=== PATIENT | female | born 1945 | race Caucasian/White ===

== ENCOUNTER → 2016-12-25 | Outpatient (CLI) | payer OTHER ==
[2016-01-14 21:06] VITALS: BP 175/86
--- NOTE | 2016-12-25 16:12 | US ---
Examination: Bilateral diagnostic mammogram and bilateral breast ultrasound. Clinical history: Bilateral breast lumps. Technique: Multiple digital images of both breasts were obtained. Targeted right breast ultrasound w as also obtained evaluating the area of palpable concern at the 5 o'clock position in the right [address]. Targeted left breast ultrasound was also obtained evaluating the areas of palpable concern at th e 11 o'clock position and 9 o'clock position in the left breast. Comparison: 09/01/2013. Findings: The breasts are composed of scattered fibroglandular densities. Benign-appearing calcifications are noted in the breasts bilaterally. Skin moles are present overlying both breasts. No mammographic abnormality is evident in the areas of palpable concern in the breasts bilaterally. No suspicious mass, area of architectural distortion or suspicious cluster of microcalcifications is noted. Targeted right breast ultrasound evaluating the area of palpable concern at the 5 o'clock position r eveals no sonographic abnormality. No suspicious cystic or solid mass is noted. Targeted left breast ultrasound evaluating the areas of palpable concern at the 11 o'clock position and 9 o'clock position reveal no sonographic abnormality. No suspicious cystic or solid mass is note d. Impression: 1. No mammographic or sonographic evidence of malignancy. BI-RADS category 2-benign findings. Recommend routine annual screening mammogram. Diagnostic CAD was utilized and reviewed. * 0 (ZERO) - ASSESSMENT INCOMPLETE; ADDITIONAL IMAGING IS NEEDED. * 0C - ASSESSMENT INCOMPLETE, NEEDS ADDITIONAL IMAGING EVALUATION AND/OR PRIOR MAMMOGRAMS FOR COMPAR PRIETO. * 1/1 (ONE) - NEGATIVE. * 2/II (TWO) - BENIGN FINDINGS. * 3/III (THREE) - PROBABLY BENIGN FINDING; SHORT INTERVAL FOLLOW-UP SUGGESTED. * 4/IV (FOUR) - SUSPICIOUS ABNORMALITY; BIOPSY SHOULD BE CONSIDERED. * 5/V - HIGHLY SUSPICIOUS OF MALIGNANCY; BIOPSY SHOULD BE PERFORMED. * 6/IV - KNOWN BIOPSY PROVEN MALIGNANCY-APPROPRIATE ACTION SHOULD BE TAKEN. A NEGATIVE X-RAY REPORT SHOULD NOT DELAY BIOPSY IF A DOMINANT OR CLINICALLY SUSPICIOUS MASS IS PRESENT; 4 TO 8 PERCENT OF CANCERS ARE NOT IDENTIFIED BY X-RAY. A NEGATIVE REPORT MAY REINFORCE THE CLINICAL IMPRESSION. ADENOSIS AND DENSE BREASTS MAY OBSCURE AN UNDERLYING NEOPLASM. Reported By:
== END ==
LOC: RAD 13:02
PROVIDERS: ATTEND Nurse Practitioner Family
DX: N63 Unspecified lump in breast (principal)
CPT/HCPCS: 76642; 77066

== ENCOUNTER 2017-11-04 17:47 | Inpatient (IN) | payer OTHER ==
[2017-11-04] MEDS ORDERED: PHARMACY CONSULT - DOSE _____ XX SCH (18:41)
[2017-11-04] MEDS ORDERED: HumuLIN R SC PRN (18:41)
[2017-11-04] MEDS ORDERED: PHARMACY CONSULT - VANCOMYCIN XX SCH (18:41)
[2017-11-04] MEDS ORDERED: VANCOMYCIN 1 GM PREMIX (ADDVANTAGE) 250 ML IV ONE (19:00)
[2017-11-04 19:10] LABS: BASOPHILS # (AUTO) 0.1 X10^3/uL (0.0-0.1); BASOPHILS % (AUTO) 1.4 % (0.2-1.0); EOSINOPHILS # (AUTO) 0.2 x10^3/uL (0.0-0.2); EOSINOPHILS % (AUTO) 3.5 % (0.9-2.9); HEMATOCRIT 31.6 % (36.0-47.0); HEMOGLOBIN 10.9 g/dL (12.0-16.0); LYMPHOCYTES # (AUTO) 0.8 X10^3/uL (1.3-2.9); LYMPHOCYTES % (AUTO) 11.8 % (21.0-51.0); MEAN CORPUSCULAR HEMOGLOBIN 28.7 pg (27.0-34.0); MEAN CORPUSCULAR HGB CONC 34.3 g/dL (33.0-35.0); MEAN CORPUSCULAR VOLUME 83.5 fL (80.0-100.0); MEAN PLATELET VOLUME 7.2 fL (7.4-11.0); MONOCYTES # (AUTO) 0.7 x10^3/uL (0.3-0.8); MONOCYTES % (AUTO) 10.3 % (0.0-13.0); NEUTROPHILS # (AUTO) 4.8 x10^3/uL (2.2-4.8); PLATELET COUNT 202 X10^3/uL (150.0-450.0); RED BLOOD COUNT 3.79 X10^6/uL (3.5-5.4); WHITE BLOOD COUNT 6.6 X10^3/uL (3.6-10.0)
[2017-11-04 19:26] LABS: ALANINE AMINOTRANSFERASE 17 Units/L (12-78); ALBUMIN 3.5 g/dL (3.4-5.0); ALKALINE PHOSPHATASE 119 Units/L (46-116); ASPARTATE AMINO TRANSFERASE 16 Units/L (15-37); BLOOD UREA NITROGEN 26 mg/dL (7-18); CALCIUM 9.5 mg/dL (8.5-10.1); CARBON DIOXIDE 25.3 mmol/L (21-32); CHLORIDE 101 mmol/L (98-107); COR NA(FOR HYPERGLY) 140 mmol/L (136-145); CREATININE 1.45 mg/dL (0.55-1.02); SODIUM 138 mmol/L (136-145); TOTAL PROTEIN 8.4 g/dL (6.4-8.2); eGFR BLACK RACES 46 (>60); eGFR NON BLACK RACES 38 (>60)
[2017-11-04 20:04] LABS: ERYTHROCYTE SEDIMENTATION RATE 77 MM/HOUR (0-20)
[2017-11-04] MEDS: NS 1000 ML 1,000 ML IV SCH (20:11)
[2017-11-04 20:19] VITALS: BMI 34.4
[2017-11-04] MEDS: MILK OF MAGNESIA PO SCH (21:03)
[2017-11-04] MEDS: COLACE CAP 100 MG PO SCH (21:03)
[2017-11-04] MEDS: VANCOMYCIN 1 GM PREMIX (ADDVANTAGE) 250 ML IV SCH ×2 (21:07→22:13)
[2017-11-04] MEDS: ZOSYN VIAL 3.375 GM 3.375 GM in NS 100 ML IV + SPIKE MINIBAG* 100 ML IV SCH (23:05)
[2017-11-05] MEDS: ZOSYN VIAL 3.375 GM 3.375 GM in NS 100 ML IV + SPIKE MINIBAG* 100 ML IV SCH ×3 (05:28→22:15)
[2017-11-05 06:04] LABS: BASOPHILS % (AUTO) 1.2 % (0.2-1.0); EOSINOPHILS # (AUTO) 0.2 x10^3/uL (0.0-0.2); EOSINOPHILS % (AUTO) 6.4 % (0.9-2.9); HEMATOCRIT 28.1 % (36.0-47.0); HEMOGLOBIN 9.7 g/dL (12.0-16.0); LYMPHOCYTES # (AUTO) 0.5 X10^3/uL (1.3-2.9); LYMPHOCYTES % (AUTO) 12.5 % (21.0-51.0); MEAN CORPUSCULAR HEMOGLOBIN 28.6 pg (27.0-34.0); MEAN CORPUSCULAR HGB CONC 34.4 g/dL (33.0-35.0); MEAN CORPUSCULAR VOLUME 83.1 fL (80.0-100.0); MEAN PLATELET VOLUME 7.2 fL (7.4-11.0); MONOCYTES # (AUTO) 0.6 x10^3/uL (0.3-0.8); MONOCYTES % (AUTO) 15.7 % (0.0-13.0); NEUTROPHILS # (AUTO) 2.5 x10^3/uL (2.2-4.8); NEUTROPHILS % (AUTO) 64.2 % (42.0-75.0); PLATELET COUNT 182 X10^3/uL (150.0-450.0); RED BLOOD COUNT 3.38 X10^6/uL (3.5-5.4); RED CELL DISTRIBUTION WIDTH 15.4 % (11.6-16.5); WHITE BLOOD COUNT 3.9 X10^3/uL (3.6-10.0)
[2017-11-05 06:35] LABS: ALBUMIN 2.9 g/dL (3.4-5.0); CALCIUM 8.7 mg/dL (8.5-10.1); CARBON DIOXIDE 26.9 mmol/L (21-32); COR CA(FOR HYPOALB) 9.6 mg/dL (8.5-10.1); CREATININE 1.18 mg/dL (0.55-1.02)
--- NOTE | 2017-11-05 06:44 | CT ---
HISTORY: Periorbital cellulitis Study: CT sinuses without contrast Comparison: None Technique: Axial noncontrast images with coronal and sagittal reformats. Dose reduction procedures we re used with mA/kv adjusted for body size. Findings: There is mild soft tissue swelling over the left lower eyelid and left maxilla. This is consistent wi th a mild cellulitis. No drainable fluid collection is identified. The globes are intact. The retro-o rbital soft tissues are normal. The frontal, ethmoid, maxillary, and sphenoid sinuses are clear. The middle ear spaces and mastoid air cells are clear. The ostiomeatal complexes are patent. The nasal se ptum is midline. IMPRESSION: Findings consistent with a mild left facial cellulitis Clear paranasal sinuses Reported By:
[2017-11-05 08:30] LABS: ERYTHROCYTE SEDIMENTATION RATE 82 MM/HOUR (0-20)
[2017-11-05] MEDS: MILK OF MAGNESIA PO SCH ×2 (08:51→21:22)
[2017-11-05] MEDS: NS 1000 ML 1,000 ML IV SCH (08:51)
[2017-11-05] MEDS: COLACE CAP 100 MG PO SCH ×2 (08:51→21:20)
[2017-11-05] MEDS ORDERED: PATIENT'S HOME MEDICATION (Albuterol Sulfate 1 PUFF) IN PRN (10:02)
[2017-11-05] MEDS ORDERED: LOMOTIL PO PRN (10:07)
[2017-11-05] MEDS ORDERED: NAPROSYN PO PRN (10:27)
[2017-11-05] MEDS: WELLBUTRIN XL 150 MG (DAILY) PO SCH (11:03)
[2017-11-05] MEDS: COREG TAB 6.25 MG PO SCH ×2 (11:03→21:20)
[2017-11-05] MEDS: PATIENT'S HOME MEDICATION PO SCH ×3 (11:04→21:25)
--- NOTE | 2017-11-05 15:35 | DR.UPDATE ---
H&P Update History and Physical Update: presented to the office on 11/04/2017. She was admitted for periorbital/ facial cellulitis. History and Physical reviewed and patient examined. No changes noted to H&P. Changes noted: NO Yes with the following:
[2017-11-05] MEDS ORDERED: COLACE CAP 100 MG PO SCH (21:00)
[2017-11-05] MEDS ORDERED: MILK OF MAGNESIA PO SCH (21:00)
[2017-11-05] MEDS: DESYREL PO SCH (21:21)
[2017-11-05] MEDS: GLUCOTROL PO SCH (21:22)
[2017-11-05] MEDS: VANCOMYCIN 1 GM PREMIX (ADDVANTAGE) 250 ML IV SCH (21:23)
[2017-11-06] MEDS: NS 1000 ML 1,000 ML IV SCH (04:34)
[2017-11-06 06:03] LABS: EOSINOPHILS # (AUTO) 0.3 x10^3/uL (0.0-0.2); EOSINOPHILS % (AUTO) 6.9 % (0.9-2.9); HEMATOCRIT 26.6 % (36.0-47.0); HEMOGLOBIN 9.2 g/dL (12.0-16.0); LYMPHOCYTES # (AUTO) 0.5 X10^3/uL (1.3-2.9); MEAN CORPUSCULAR HEMOGLOBIN 28.9 pg (27.0-34.0); MEAN CORPUSCULAR HGB CONC 34.5 g/dL (33.0-35.0); MEAN CORPUSCULAR VOLUME 83.8 fL (80.0-100.0); MEAN PLATELET VOLUME 7.3 fL (7.4-11.0); MONOCYTES # (AUTO) 0.5 x10^3/uL (0.3-0.8); MONOCYTES % (AUTO) 13.7 % (0.0-13.0); NEUTROPHILS # (AUTO) 2.7 x10^3/uL (2.2-4.8); NEUTROPHILS % (AUTO) 66.4 % (42.0-75.0); PLATELET COUNT 175 X10^3/uL (150.0-450.0); RED BLOOD COUNT 3.18 X10^6/uL (3.5-5.4); RED CELL DISTRIBUTION WIDTH 15.2 % (11.6-16.5)
[2017-11-06] MEDS: ZOSYN VIAL 3.375 GM 3.375 GM in NS 100 ML IV + SPIKE MINIBAG* 100 ML IV SCH ×3 (06:08→21:26)
[2017-11-06] MEDS: PATIENT'S HOME MEDICATION PO SCH ×4 (06:09→20:02)
[2017-11-06 06:29] LABS: BLOOD UREA NITROGEN 20 mg/dL (7-18); CALCIUM 8.4 mg/dL (8.5-10.1); CARBON DIOXIDE 27.4 mmol/L (21-32); CHLORIDE 104 mmol/L (98-107); CREATININE 1.08 mg/dL (0.55-1.02); SODIUM 140 mmol/L (136-145); eGFR BLACK RACES > 60 (>60); eGFR NON BLACK RACES 53 (>60)
[2017-11-06] MEDS: PriLOSEC PO SCH (08:52)
[2017-11-06] MEDS: GLUCOTROL PO SCH ×2 (08:52→20:02)
[2017-11-06] MEDS: DEMADEX PO SCH (08:53)
[2017-11-06] MEDS: ASPIRIN 81 MG CHEWTAB PO SCH (08:53)
[2017-11-06] MEDS: COLACE CAP 100 MG PO SCH ×2 (08:53→20:01)
[2017-11-06] MEDS: VASOTEC TAB 20 MG PO SCH (08:53)
[2017-11-06] MEDS: ZyrTEC TAB 10 MG PO SCH (08:53)
[2017-11-06] MEDS: COREG TAB 6.25 MG PO SCH ×2 (08:53→20:02)
[2017-11-06] MEDS: WELLBUTRIN XL 150 MG (DAILY) PO SCH (08:53)
[2017-11-06] MEDS: MILK OF MAGNESIA PO SCH ×2 (08:54→20:02)
[2017-11-06] MEDS: SNACK - Diabetic Appropriate PO SCH ×2 (08:57→20:01)
[2017-11-06 12:07] LABS: ALANINE AMINOTRANSFERASE 19 Units/L (12-78); ALBUMIN 2.9 g/dL (3.4-5.0); ALKALINE PHOSPHATASE 90 Units/L (46-116); ASPARTATE AMINO TRANSFERASE 21 Units/L (15-37); COR CA(FOR HYPOALB) 9.3 mg/dL (8.5-10.1); TOTAL PROTEIN 6.7 g/dL (6.4-8.2)
--- NOTE | 2017-11-06 13:05 | PCM.PROG ---
Progress Note - Progress Note for Day of Date: 11/05/17 - Subjective Subjective: WAS ADMITTED ON 11/04/2017. SHE IS BEING TREATED FOR PERIORBITAL/FACIAL CELLULITIS. SHE REPORTS THAT SYMPTOMS STARTED ON SATURDAY. TODAY, SHE IS ALERT AND ORIENTED, LYING IN BED ON MORNING ROUNDS. SHE IS NOTED WITH COMPLAINTS OF REDNESS AND TENDERNESS TO THE LEFT SIDE OF HER FACE. ON EXAMINATION, SHE IS NOTED WITH ERYTHEMA, WARMTH, AND SWELLING BEGINNING AT THE LEFT CHEEKBONE AND EXTENDING UP TO THE LEFT PERIORBITAL AREA. HEART IS REGULAR IN RATE AND RHYTHM. BILATERAL LUNGS ARE NOTED TO BE CLEAR TO AUSCULTATION BILATERALLY. ABDOMEN IS ROUND, SOFT, AND NON-TENDER WITH NORMAL BOWEL SOUNDS NOTED IN ALL QUADRANTS. THERE IS NORMAL RANGE OF MOTION NOTED TO ALL EXTREMITIES. HER VITALS THIS MORNING ARE 98.0-86-20-97%-144/67. LABS WERE OBTAINED. ABNORMAL LAB VALUES INCLUDE THE FOLLOWING: RBC 3.18, HGB 9.2, HCT 26.6 , BUN 24, CREATININE 1.18, GLUCOSE 126, ALBUMIN 2.9. A SINUS CT WAS OBTAINED ON ADMISSION AND REVEALED CLEAR PARANASAL SINUSES, FINDINGS CONSISTENT WITH A MILD LEFT FACIAL CELLULITIS. SHE IS CURRENTLY RECEIVING ZOSYN 3.375GM IV Q8H AND VANCOMYCIN 1GM IV DAILY. WE WILL CONTINUE WITH CURRENT PLAN OF CARE TODAY. WE PLAN TO FOLLOW UP WITH AM LABS AND CONTINUE TO MONITOR PATIENT. - Past Medical Family Social History Past Med/Fam/Surg Hx: No changes since H&P Allergies: Allergies codeine Allergy (Verified 11/04/17 20:20) shrimp Allergy (Verified 11/04/17 20:20) ant bites Allergy (Uncoded 11/04/17 20:20) - Review of Systems ROS: No change since H&P - Vital Signs and I&O's Vital Signs: Temperature 98.7 F Pulse Rate [Right Brachial] 77 Pulse Rate [Left Radial] 69 Respiratory Rate 20 Blood Pressure [Left Arm] 117/57 Blood Pressure [Right Arm] 119/58 Blood Pressure 175/86 O2 Sat by Pulse Oximetry 94 Intake and Output: Intake & Output 11/04/17 11/05/17 11/06/17 11/07/17 11:59 11:59 11:59 11:59 Intake Total 1700 2815 Balance 1700 2815 - Physical Exam Oriented: Normal Eyes: Normal Ear: Normal Nose: Normal Throat: Normal Respiratory: Normal Cardiovascular: Normal : Normal Auscultation: Bowel Sounds: Normal Palpation: Normal Tenderness: Normal Skin: Other (ERYTHEMA, WARMTH, TENDERNESS, AND SLIGHT EDEMA TO PERIORBITAL AND LEFT CHEEK AREA) Musculoskeletal: Normal Psychiatric: Normal Mood Description: Calm Affect: Normal Speech Pattern: Clear, Appropriate - Laboratory and Diagnostics Result Diagrams: 11/06/17 04:20 11/06/17 04:20 Labs: Laboratory WBC 4.0 X10^3/uL (3.6-10.0) 11/06/17 04:20 RBC 3.18 X10^6/uL (3.5-5.4) L 11/06/17 04:20 Hgb 9.2 g/dL (12.0-16.0) L 11/06/17 04:20 Hct 26.6 % (36.0-47.0) L 11/06/17 04:20 MCV 83.8 fL (80.0-100.0) 11/06/17 04:20 MCH 28.9 pg (27.0-34.0) 11/06/17 04:20 MCHC 34.5 g/dL (33.0-35.0) 11/06/17 04:20 RDW 15.2 % (11.6-16.5) 11/06/17 04:20 Plt Count 175 X10^3/uL (150.0-450.0) 11/06/17 04:20 MPV 7.3 fL (7.4-11.0) L 11/06/17 04:20 Neut % (Auto) 66.4 % (42.0-75.0) 11/06/17 04:20 Lymph % (Auto) 12.0 % (21.0-51.0) L 11/06/17 04:20 [place] % (Auto) 13.7 % (0.0-13.0) H 11/06/17 04:20 Eos % (Auto) 6.9 % (0.9-2.9) H 11/06/17 04:20 Baso % (Auto) 1.0 % (0.2-1.0) 11/06/17 04:20 Neut # (Auto) 2.7 x10^3/uL (2.2-4.8) 11/06/17 04:20 Lymph # (Auto) 0.5 X10^3/uL (1.3-2.9) L 11/06/17 04:20 [place] # (Auto) 0.5 x10^3/uL (0.3-0.8) 11/06/17 04:20 Eos # (Auto) 0.3 x10^3/uL (0.0-0.2) H 11/06/17 04:20 Baso # (Auto) 0.0 X10^3/uL (0.0-0.1) 11/06/17 04:20 Absolute Nucleated RBC 0.1 /100WBC 11/06/17 04:20 ESR 82 MM/HOUR (0-20) H 11/05/17 04:35 Sodium 140 mmol/L (136-145) 11/06/17 04:20 Corrected Sodium TNP 11/06/17 04:20 Potassium 3.7 mmol/L (3.5-5.1) 11/06/17 04:20 Chloride 104 mmol/L (98-107) 11/06/17 04:20 Carbon Dioxide 27.4 mmol/L (21-32) 11/06/17 04:20 BUN 20 mg/dL (7-18) H 11/06/17 04:20 Creatinine 1.08 mg/dL (0.55-1.02) H 11/06/17 04:20 Est GFR (MDRD) Af Amer > 60 (>60) 11/06/17 04:20 Est GFR (MDRD) Non-Af 53 (>60) L 11/06/17 04:20 Glucose 93 mg/dL (65-99) 11/06/17 04:20 POC Glucose (mg/dL) 157 mg/dL (65-99) H 11/06/17 11:56 Calcium 8.4 mg/dL (8.5-10.1) L 11/06/17 04:20 Corrected Calcium 9.3 mg/dL (8.5-10.1) 11/06/17 04:20 Total Bilirubin 0.40 mg/dL (0.2-1.0) 11/06/17 04:20 AST 21 Units/L (15-37) 11/06/17 04:20 ALT 19 Units/L (12-78) 11/06/17 04:20 Alkaline Phosphatase 90 Units/L (46-116) 11/06/17 04:20 Total Protein 6.7 g/dL (6.4-8.2) 11/06/17 04:20 Albumin 2.9 g/dL (3.4-5.0) L 11/06/17 04:20 Globulin 3.8 g/dL (2.5-4.5) 11/06/17 04:20 Albumin/Globulin Ratio 0.8 Ratio (1.1-2.1) L 11/06/17 04:20 - Plan (1) Periorbital cellulitis Status: Acute Qualifiers: Laterality: unspecified laterality Qualified Code(s): L03.213 - Periorbital cellulitis Plan: ZOSYN 3.375GM IV Q8H, VANCOMYCIN 1GM IV DAILY, CONTINUE TO MONITOR (2) Facial cellulitis Status: Acute Plan: ZOSYN 3.375GM IV Q8H, VANCOMYCIN 1GM IV DAILY, CONTINUE TO MONITOR (3) Depression Status: Chronic Qualifiers: Depression Type: major depressive disorder Major depression recurrence: recurrent Active/Remission status: remission status unspecified Qualified Code(s): F33.9 - Major depressive disorder, recurrent, unspecified Plan: CNTINUE WELLBUTRIN, CONTINUE TO MONITOR (4) Diabetes mellitus, type 2 Status: Chronic Qualifiers: Diabetes mellitus intermediate project manager insulin use: with intermediate project manager use Diabetes mellitus complication status: with unspecified complications Qualified Code(s) : E11.8 - Type 2 diabetes mellitus with unspecified complications; Z79.4 - nursing home (current) use of insulin; Z79.4 - intermediate project manager (current) use of insulin; Z79.4 - intermediate project manager (current) use of insulin; Z79.4 - intermediate project manager (current) use of insulin Plan: CONTINUE GLUCOTROL, CONTINUE HUMULIN R SLIDING SCALE, MONITOR OTBS, CONTINUE TO MONITOR (5) GERD (gastroesophageal reflux disease) Status: Chronic Qualifiers: Esophagitis presence: esophagitis presence not specified Qualified Code(s) : K21.9 - Gastro-esophageal reflux disease without esophagitis Plan: CONTINUE PRILOSEC, CONTINUE TO MONITOR (6) History of anemia Status: Chronic (7) Hypertension Status: Chronic Qualifiers: Hypertension type: essential hypertension Qualified Code(s): I10 - Essential (primary) hypertension Plan: CONTINUE COREG, CONTINUE VASOTEC, CONTINUE TO MONITOR
--- NOTE | 2017-11-06 13:26 | PCM.PROG ---
Progress Note - Progress Note for Day of Date: 11/06/17 - Subjective Subjective: IS BEING TREATED FOR PERIORBITAL/FACIAL CELLULITIS. TODAY, SHE IS ALERT AND ORIENTED, SITTIN ON THE SIDE OF THE BED ON MORNING ROUNDS. SHE CONTINUES WITH COMPLAINTS OF REDNESS AND TENDERNESS TO THE LEFT SIDE OF HER FACE. SHE ALSO REPORTS PRESSURE AROUND MY NOSE. ON EXAMINATION, SHE CONTINUES WITH ERYTHEMA, WARMTH, AND SWELLING BEGINNING AT THE LEFT CHEEKBONE AND EXTENDING UP TO THE LEFT PERIORBITAL AREA. ERYTHEMA HAS SLIGHTLY IMPROVED SINCE YESTERDAY. HEART IS REGULAR IN RATE AND RHYTHM. BILATERAL LUNGS ARE NOTED TO BE CLEAR TO AUSCULTATION BILATERALLY. ABDOMEN IS ROUND, SOFT, AND NON-TENDER WITH NORMAL BOWEL SOUNDS NOTED IN ALL QUADRANTS. THERE IS NORMAL RANGE OF MOTION NOTED TO ALL EXTREMITIES. HER VITALS THIS MORNING ARE 98.5-69-18-96%-117/57. LABS WERE OBTAINED. ABNORMAL LAB VALUES INCLUDE THE FOLLOWING: RBC 3.18, HGB 9.2 , HCT 26.6, BUN 20, CREATININE 1.08, CALCIUM 8.4, ALBUMIN 2.9. SHE CONTINUES TO RECEIVE ZOSYN 3.375GM IV Q8H AND VANCOMYCIN 1GM IV DAILY. WE WILL CONTINUE WITH CURRENT PLAN OF CARE TODAY AND WILL ALSO OBTAIN A NASAL CULTURE. WE PLAN TO FOLLOW UP WITH AM LABS AND CONTINUE TO MONITOR PATIENT. - Past Medical Family Social History Past Med/Fam/Surg Hx: No changes since H&P Allergies: Allergies codeine Allergy (Verified 11/04/17 20:20) shrimp Allergy (Verified 11/04/17 20:20) ant bites Allergy (Uncoded 11/04/17 20:20) - Review of Systems ROS: No change since H&P - Vital Signs and I&O's Vital Signs: Temperature 98.7 F Pulse Rate [Right Brachial] 77 Pulse Rate [Left Radial] 69 Respiratory Rate 20 Blood Pressure [Left Arm] 117/57 Blood Pressure [Right Arm] 119/58 Blood Pressure 175/86 O2 Sat by Pulse Oximetry 94 Intake and Output: Intake & Output 11/04/17 11/05/17 11/06/17 11/07/17 11:59 11:59 11:59 11:59 Intake Total 1700 2815 Balance 1700 2815 - Physical Exam Oriented: Normal Eyes: Normal Ear: Normal Nose: Other (PATIENT REPORTS PRESSURE AROUND NOSE) Throat: Normal Respiratory: Normal Cardiovascular: Normal : Normal Auscultation: Bowel Sounds: Normal Palpation: Normal Tenderness: Normal Skin: Other (ERYTHEMA, WARMTH, TENDERNESS, AND SLIGHT EDEMA TO PERIORBITAL AND LEFT CHEEK AREA) Musculoskeletal: Normal Psychiatric: Normal Mood Description: Calm Affect: Normal Speech Pattern: Clear, Appropriate - Laboratory and Diagnostics Result Diagrams: 11/06/17 04:20 11/06/17 04:20 Labs: Laboratory WBC 4.0 X10^3/uL (3.6-10.0) 11/06/17 04:20 RBC 3.18 X10^6/uL (3.5-5.4) L 11/06/17 04:20 Hgb 9.2 g/dL (12.0-16.0) L 11/06/17 04:20 Hct 26.6 % (36.0-47.0) L 11/06/17 04:20 MCV 83.8 fL (80.0-100.0) 11/06/17 04:20 MCH 28.9 pg (27.0-34.0) 11/06/17 04:20 MCHC 34.5 g/dL (33.0-35.0) 11/06/17 04:20 RDW 15.2 % (11.6-16.5) 11/06/17 04:20 Plt Count 175 X10^3/uL (150.0-450.0) 11/06/17 04:20 MPV 7.3 fL (7.4-11.0) L 11/06/17 04:20 Neut % (Auto) 66.4 % (42.0-75.0) 11/06/17 04:20 Lymph % (Auto) 12.0 % (21.0-51.0) L 11/06/17 04:20 [place] % (Auto) 13.7 % (0.0-13.0) H 11/06/17 04:20 Eos % (Auto) 6.9 % (0.9-2.9) H 11/06/17 04:20 Baso % (Auto) 1.0 % (0.2-1.0) 11/06/17 04:20 Neut # (Auto) 2.7 x10^3/uL (2.2-4.8) 11/06/17 04:20 Lymph # (Auto) 0.5 X10^3/uL (1.3-2.9) L 11/06/17 04:20 [place] # (Auto) 0.5 x10^3/uL (0.3-0.8) 11/06/17 04:20 Eos # (Auto) 0.3 x10^3/uL (0.0-0.2) H 11/06/17 04:20 Baso # (Auto) 0.0 X10^3/uL (0.0-0.1) 11/06/17 04:20 Absolute Nucleated RBC 0.1 /100WBC 11/06/17 04:20 ESR 82 MM/HOUR (0-20) H 11/05/17 04:35 Sodium 140 mmol/L (136-145) 11/06/17 04:20 Corrected Sodium TNP 11/06/17 04:20 Potassium 3.7 mmol/L (3.5-5.1) 11/06/17 04:20 Chloride 104 mmol/L (98-107) 11/06/17 04:20 Carbon Dioxide 27.4 mmol/L (21-32) 11/06/17 04:20 BUN 20 mg/dL (7-18) H 11/06/17 04:20 Creatinine 1.08 mg/dL (0.55-1.02) H 11/06/17 04:20 Est GFR (MDRD) Af Amer > 60 (>60) 11/06/17 04:20 Est GFR (MDRD) Non-Af 53 (>60) L 11/06/17 04:20 Glucose 93 mg/dL (65-99) 11/06/17 04:20 POC Glucose (mg/dL) 157 mg/dL (65-99) H 11/06/17 11:56 Calcium 8.4 mg/dL (8.5-10.1) L 11/06/17 04:20 Corrected Calcium 9.3 mg/dL (8.5-10.1) 11/06/17 04:20 Total Bilirubin 0.40 mg/dL (0.2-1.0) 11/06/17 04:20 AST 21 Units/L (15-37) 11/06/17 04:20 ALT 19 Units/L (12-78) 11/06/17 04:20 Alkaline Phosphatase 90 Units/L (46-116) 11/06/17 04:20 Total Protein 6.7 g/dL (6.4-8.2) 11/06/17 04:20 Albumin 2.9 g/dL (3.4-5.0) L 11/06/17 04:20 Globulin 3.8 g/dL (2.5-4.5) 11/06/17 04:20 Albumin/Globulin Ratio 0.8 Ratio (1.1-2.1) L 11/06/17 04:20 - Plan (1) Periorbital cellulitis Status: Acute Qualifiers: Laterality: unspecified laterality Qualified Code(s): L03.213 - Periorbital cellulitis Plan: ZOSYN 3.375GM IV Q8H, VANCOMYCIN 1GM IV DAILY, CONTINUE TO MONITOR (2) Facial cellulitis Status: Acute Plan: NASAL CULTURE, ZOSYN 3.375GM IV Q8H, VANCOMYCIN 1GM IV DAILY, CONTINUE TO MONITOR (3) Depression Status: Chronic Qualifiers: Depression Type: major depressive disorder Major depression recurrence: recurrent Active/Remission status: remission status unspecified Qualified Code(s): F33.9 - Major depressive disorder, recurrent, unspecified Plan: CNTINUE WELLBUTRIN, CONTINUE TO MONITOR (4) Diabetes mellitus, type 2 Status: Chronic Qualifiers: Diabetes mellitus retirement insulin use: with retirement use Diabetes mellitus complication status: with unspecified complications Qualified Code(s) : E11.8 - Type 2 diabetes mellitus with unspecified complications; Z79.4 - retirement (current) use of insulin; Z79.4 - buttermaker helper (current) use of insulin; Z79.4 - buttermaker helper (current) use of insulin; Z79.4 - buttermaker helper (current) use of insulin Plan: CONTINUE GLUCOTROL, CONTINUE HUMULIN R SLIDING SCALE, MONITOR OTBS, CONTINUE TO MONITOR (5) GERD (gastroesophageal reflux disease) Status: Chronic Qualifiers: Esophagitis presence: esophagitis presence not specified Qualified Code(s) : K21.9 - Gastro-esophageal reflux disease without esophagitis Plan: CONTINUE PRILOSEC, CONTINUE TO MONITOR (6) History of anemia Status: Chronic (7) Hypertension Status: Chronic Qualifiers: Hypertension type: essential hypertension Qualified Code(s): I10 - Essential (primary) hypertension Plan: CONTINUE COREG, CONTINUE VASOTEC, CONTINUE TO MONITOR
[2017-11-06] MEDS: DESYREL PO SCH (20:02)
[2017-11-06] MEDS: VANCOMYCIN 1 GM PREMIX (ADDVANTAGE) 250 ML IV SCH (20:03)
[2017-11-06] MEDS: ROBITUSSIN DM PO PRN (21:25)
[2017-11-07] MEDS: NS 1000 ML 1,000 ML IV SCH (02:51)
[2017-11-07] MEDS: ZOSYN VIAL 3.375 GM 3.375 GM in NS 100 ML IV + SPIKE MINIBAG* 100 ML IV SCH (05:08)
[2017-11-07] MEDS: PATIENT'S HOME MEDICATION PO SCH (05:32)
[2017-11-07 05:50] LABS: BASOPHILS % (AUTO) 1.3 % (0.2-1.0); EOSINOPHILS # (AUTO) 0.3 x10^3/uL (0.0-0.2); EOSINOPHILS % (AUTO) 9.3 % (0.9-2.9); HEMATOCRIT 24.7 % (36.0-47.0); HEMOGLOBIN 8.6 g/dL (12.0-16.0); LYMPHOCYTES # (AUTO) 0.5 X10^3/uL (1.3-2.9); LYMPHOCYTES % (AUTO) 14.5 % (21.0-51.0); MEAN CORPUSCULAR HGB CONC 34.7 g/dL (33.0-35.0); MEAN CORPUSCULAR VOLUME 83.4 fL (80.0-100.0); MEAN PLATELET VOLUME 7.3 fL (7.4-11.0); MONOCYTES # (AUTO) 0.5 x10^3/uL (0.3-0.8); MONOCYTES % (AUTO) 14.7 % (0.0-13.0); NEUTROPHILS # (AUTO) 2.1 x10^3/uL (2.2-4.8); NEUTROPHILS % (AUTO) 60.2 % (42.0-75.0); PLATELET COUNT 169 X10^3/uL (150.0-450.0); RED BLOOD COUNT 2.96 X10^6/uL (3.5-5.4); RED CELL DISTRIBUTION WIDTH 15.5 % (11.6-16.5); WHITE BLOOD COUNT 3.5 X10^3/uL (3.6-10.0)
[2017-11-07 05:53] LABS: ALANINE AMINOTRANSFERASE 18 Units/L (12-78); ALBUMIN 2.7 g/dL (3.4-5.0); ALKALINE PHOSPHATASE 87 Units/L (46-116); ASPARTATE AMINO TRANSFERASE 16 Units/L (15-37); BLOOD UREA NITROGEN 23 mg/dL (7-18); CALCIUM 7.8 mg/dL (8.5-10.1); CARBON DIOXIDE 28.7 mmol/L (21-32); CHLORIDE 108 mmol/L (98-107); COR CA(FOR HYPOALB) 8.8 mg/dL (8.5-10.1); CREATININE 1.15 mg/dL (0.55-1.02); SODIUM 142 mmol/L (136-145); TOTAL PROTEIN 6.3 g/dL (6.4-8.2); eGFR BLACK RACES 60 (>60); eGFR NON BLACK RACES 50 (>60)
[2017-11-07] MEDS: GLUCOTROL PO SCH (08:24)
[2017-11-07] MEDS: ROBITUSSIN DM PO PRN (08:24)
[2017-11-07] MEDS: MILK OF MAGNESIA PO SCH (08:24)
[2017-11-07] MEDS: WELLBUTRIN XL 150 MG (DAILY) PO SCH (08:25)
[2017-11-07] MEDS: DEMADEX PO SCH (08:26)
[2017-11-07] MEDS: COREG TAB 6.25 MG PO SCH (08:26)
[2017-11-07] MEDS: COLACE CAP 100 MG PO SCH (08:26)
[2017-11-07] MEDS: PriLOSEC PO SCH (08:26)
[2017-11-07] MEDS: VASOTEC TAB 20 MG PO SCH (08:27)
[2017-11-07] MEDS: ASPIRIN 81 MG CHEWTAB PO SCH (08:27)
[2017-11-07] MEDS: ZyrTEC TAB 10 MG PO SCH (08:27)
[2017-11-07 09:48] VITALS: BP 126/86
[2017-11-07] MEDS ORDERED: PHARMACY COMMENT IV SCH (20:45)
== END 2017-11-07 11:05 | disposition home or self-care (01) | DRG 603 ==
LOC: MED/SURG 17:47
PROVIDERS: ADMIT Internal Medicine; ATTEND Internal Medicine
DX: L03.213 Periorbital cellulitis (principal); L03.211 Cellulitis of face; E11.65 Type 2 diabetes mellitus with hyperglycemia; E78.2 Mixed hyperlipidemia; I10 Essential (primary) hypertension; F33.8 Other recurrent depressive disorders; Z79.4 Long term (current) use of insulin; K21.9 Gastro-esophageal reflux disease without esophagitis; D64.89 Other specified anemias
CPT/HCPCS: 36415; 70486; 80053; 85025; 85652; A4222; S0106; J1815; J2543; J3370

== ENCOUNTER 2024-02-03 11:28 | Observation (INO) ==
--- NOTE | 2024-02-03 12:24 | DR.URIAD ---
HPI Time Seen Time Seen by Provider: 02/03/24 12:23 PCP Primary Care Physician: Daquan Complaint Chief Complaint:: Recent UTI, now having difficulty breathing with excertional dyspnea, feels better at rest but continues to having dysnea. Patient also c omplains pain in epigastric area COVID-19 Coronavirus risk:travel/contact w/high risk person: No Has patient experienced Coronavirus symptoms: No Source History Provided: Patient Mode of Arrival Mode of Arrival: Ambulatory Timing Onset of Chief Complaint: 02/01/24 PMH PMH Past Medical History: Yes Past Medical History: Anemia, Angina, Anxiety, Arthritis, Asthma, Coronary Artery Disease, Depression, Diabetes, Dyslipidemia, GERD, Hypertension, Hypothyroidism and Renal Disease Past Surgical History: Yes Surgical History: Hysterectomy, Ortho Surgery and Other Family History History of Family Medical Conditions: Yes Family Medical History: Diabetes Mellitus, Cancer and Hypertension Social History Does patient currently use any type of tobacco product: No Have you used tobacco products in the last 12 months: No Type of Tobacco Use: None Does any household member use tobacco: No Alcohol Use: None Do you use any recreational Drugs:: No Lives With: Alone Lives Where: Home Travel Risk Coronavirus risk:travel/contact w/high risk person: No Has patient experienced Coronavirus symptoms: No Infectious screening In the last 2 months have you had wt loss of >10#?: NO Have you had fever, night sweats or hemotysis?: No Have you traveled outside the country in the last 6 months?: No Isolation: Standard PE Vital Signs Vitals: Vital Signs Temperature 98.1 F Pulse Rate 79 Pulse Rate 76 Pulse Rate 74 Pulse Rate 75 Pulse Rate 75 Pulse Rate 74 Pulse Rate 75 Pulse Rate 77 Pulse Rate 79 Pulse Rate 82 Pulse Rate 98 Pulse Rate 114 Pulse Rate 74 Pulse Rate 73 Pulse Rate 73 Pulse Rate 76 Pulse Rate 71 Pulse Rate 79 Pulse Rate 77 Pulse Rate 77 Pulse Rate 86 Pulse Rate 82 Pulse Rate 79 Pulse Rate 94 Pulse Rate 84 Respiratory Rate 34 Respiratory Rate 36 Respiratory Rate 31 Respiratory Rate 30 Respiratory Rate 27 Respiratory Rate 24 Respiratory Rate 28 Respiratory Rate 29 Respiratory Rate 25 Respiratory Rate 35 Respiratory Rate 20 Respiratory Rate 29 Respiratory Rate 30 Respiratory Rate 24 Respiratory Rate 44 Respiratory Rate 28 Respiratory Rate 23 Respiratory Rate 23 Respiratory Rate 24 Respiratory Rate 33 Respiratory Rate 35 Respiratory Rate 37 Respiratory Rate 28 Respiratory Rate 24 Blood Pressure 109/62 Blood Pressure 124/62 Blood Pressure 100/55 Blood Pressure 100/55 Blood Pressure 100/55 Blood Pressure 119/56 Blood Pressure 140/63 Blood Pressure 117/66 Blood Pressure 117/66 Blood Pressure 110/58 Blood Pressure 128/57 Blood Pressure 118/55 Blood Pressure 68/48 Blood Pressure 150/125 Blood Pressure 116/55 O2 Sat by Pulse Oximetry 98 O2 Sat by Pulse Oximetry 100 O2 Sat by Pulse Oximetry 99 O2 Sat by Pulse Oximetry 99 O2 Sat by Pulse Oximetry 99 O2 Sat by Pulse Oximetry 100 O2 Sat by Pulse Oximetry 99 O2 Sat by Pulse Oximetry 89 O2 Sat by Pulse Oximetry 99 O2 Sat by Pulse Oximetry 97 O2 Sat by Pulse Oximetry 99 O2 Sat by Pulse Oximetry 99 O2 Sat by Pulse Oximetry 100 O2 Sat by Pulse Oximetry 99 O2 Sat by Pulse Oximetry 98 O2 Sat by Pulse Oximetry 98 O2 Sat by Pulse Oximetry 96 O2 Sat by Pulse Oximetry 96 O2 Sat by Pulse Oximetry 99 O2 Sat by Pulse Oximetry 95 O2 Sat by Pulse Oximetry 98 ROR Labs Reviewed 02/03/24 12:54 02/03/24 12:54 Laboratory: WBC 9.8 X10^3/uL (3.6-10.0) 02/03/24 12:54 RBC 3.30 X10^6/uL (3.5-5.4) L 02/03/24 12:54 Hgb 10.0 g/dL (12.0-16.0) L 02/03/24 12:54 Hct 30.2 % (36.0-47.0) L 02/03/24 12:54 MCV 91.4 fL (80.0-100.0) 02/03/24 12:54 MCH 30.2 pg (27.0-34.0) 02/03/24 12:54 MCHC 33.1 g/dL (33.0-35.0) 02/03/24 12:54 RDW 14.1 % (11.6-16.5) 02/03/24 12:54 Plt Count 144 X10^3/uL (150.0-450.0) L 02/03/24 12:54 MPV 7.6 fL (7.4-11.0) 02/03/24 12:54 Neut % (Auto) 63.3 % (42.0-75.0) 02/03/24 12:54 Lymph % (Auto) 28.4 % (21.0-51.0) 02/03/24 12:54 [place] % (Auto) 6.8 % (0.0-13.0) 02/03/24 12:54 Eos % (Auto) 1.1 % (0.9-2.9) 02/03/24 12:54 Baso % (Auto) 0.4 % (0.2-1.0) 02/03/24 12:54 Neut # (Auto) 6.2 x10^3/uL (2.2-4.8) H 02/03/24 12:54 Lymph # (Auto) 2.8 X10^3/uL (1.3-2.9) 02/03/24 12:54 [place] # (Auto) 0.7 x10^3/uL (0.3-0.8) 02/03/24 12:54 Eos # (Auto) 0.1 x10^3/uL (0.0-0.2) 02/03/24 12:54 Baso # (Auto) 0.0 X10^3/uL (0.0-0.1) 02/03/24 12:54 Absolute Nucleated RBC 0.0 /100WBC 02/03/24 12:54 D-Dimer 1.47 ug/ml (0.0-0.57) H 02/03/24 12:54 Sodium 138 mmol/L (136-145) 02/03/24 12:54 Corrected Sodium 140 mmol/L (136-145) 02/03/24 12:54 Potassium 4.6 mmol/L (3.5-5.1) 02/03/24 12:54 Chloride 102 mmol/L (98-107) 02/03/24 12:54 Carbon Dioxide 21.2 mmol/L (21-32) 02/03/24 12:54 BUN 64 mg/dL (7-18) H 02/03/24 12:54 Creatinine 2.36 mg/dL (0.55-1.02) H 02/03/24 12:54 Est GFR (MDRD) Af Amer 26 (>60) L 02/03/24 12:54 Est GFR (MDRD) Non-Af 21 (>60) L 02/03/24 12:54 Glucose 176 mg/dL (65-99) H 02/03/24 12:54 Calcium 9.2 mg/dL (8.5-10.1) 02/03/24 12:54 Corrected Calcium TNP 02/03/24 12:54 Total Bilirubin 1.00 mg/dL (0.2-1.0) 02/03/24 12:54 AST 15 Units/L (15-37) 02/03/24 12:54 ALT 12 Units/L (12-78) 02/03/24 12:54 Alkaline Phosphatase 65 Units/L (46-116) 02/03/24 12:54 Creatine Kinase 27 Units/L (26-192) 02/03/24 12:54 Troponin I High Sens 7.0 ng/L (4.0-60.0) 02/03/24 12:54 B-Natriuretic Peptide 28.1 pg/mL (0-79) 02/03/24 12:54 Total Protein 6.8 g/dL (6.4-8.2) 02/03/24 12:54 Albumin 3.7 g/dL (3.4-5.0) 02/03/24 12:54 Globulin 3.1 g/dL (2.5-4.5) 02/03/24 12:54 Albumin/Globulin Ratio 1.2 Ratio (1.1-2.1) 02/03/24 12:54 Amylase 60 Units/L (25-115) 02/03/24 12:54 Lipase 94 Units/L (16-77) H 02/03/24 12:54 Specimen Type Clean catch urine 02/03/24 14:10 Urine Color Dark yellow (YELLOW) 02/03/24 14:10 Urine Appearance Clear (CLEAR) 02/03/24 14:10 Urine pH Cancelled 02/03/24 14:10 Ur Specific [place] Cancelled 02/03/24 14:10 Urine Protein Cancelled 02/03/24 14:10 Urine Glucose (UA) Cancelled 02/03/24 14:10 Urine Ketones Cancelled 02/03/24 14:10 Urine Blood Cancelled 02/03/24 14:10 Urine Nitrite Cancelled 02/03/24 14:10 Urine Bilirubin Cancelled 02/03/24 14:10 Urine Urobilinogen Cancelled 02/03/24 14:10 Ur Leukocyte Esterase Cancelled 02/03/24 14:10 Urine RBC 10-20 /HPF (0-3) A 02/03/24 14:10 Urine WBC 20-30 /HPF (0-5) A 02/03/24 14:10 Ur Squamous Epith Cells Moderate /HPF (NEGATIVE) 02/03/24 14:10 Urine Bacteria 1+ /HPF (NEGATIVE) 02/03/24 14:10 Ur Culture Indicated? Yes/culture set up 02/03/24 14:10 Opioid Opioid Risk Tool Age (Misael box if 16-45): No History of Preadolescent Sexual Abuse: No Total: 0 Total Score Risk Category: Low Risk Copyright: [facility] predicting aberrant behaviors Discharge Plan Diagnosis Discharge Problem: SOB (shortness of breath), Acute renal insufficiency, Dehydration, UTI (urinary tract infection) Discharge Plan Patient Disposition: 01 HOME, SELF-CARE Condition: Stable Prescriptions: No Action atorvastatin 20 mg tablet 1 tab PO QDAY enalapril maleate 20 mg tablet 1 tab PO QDAY glipizide 10 mg tablet 1 tab PO BID levothyroxine 25 mcg tablet 1 tab PO QDAY omeprazole 20 mg capsule,delayed release(DR/EC) 1 cap PO BID ergocalciferol (vitamin D2) [Vitamin D2] 1,250 mcg (50,000 unit) capsule 1 cap PO DAILY potassium chloride 10 mEq tablet extended release 10 meq PO QDAY temazepam 30 mg capsule 30 mg PO QPM PRN gabapentin 300 mg capsule 300 mg PO QDAY folic acid 1 mg Tablet 1 mg PO DAILY furosemide 20 mg Tablet 20 mg PO DAILY oxybutynin chloride 5 mg tablet 5 mg PO BID duloxetine 60 mg capsule,delayed release(DR/EC) 60 mg PO QDAY cetirizine 10 mg Tablet 10 mg PO DAILY temazepam 15 mg capsule 30 mg PO HS sertraline 25 mg tablet 25 mg PO QDAY Health Concerns: Post Hospitalization: new medications and changes needed to prevent readmission or further decline. Pt educated and given instructions on all concerns. Plan of Treatment: Continue with present treatment and follow up plan. Pt is to keep follow up appointment as instructed and take medications as ordered. Orders to Discharge Patient Discharge Orders: Transfer (Routine); Ordered 02/03/24 Ordered By: DANTE HOWE Follow ups/Referrals Follow ups/Referrals: JACOBY QUIROZ [REFERRING] - 3 days Instructions Stand Alone Forms: Post Hospital Follow Up Care
[2024-02-03 13:03] LABS: BASOPHILS % (AUTO) 0.4 % (0.2-1.0); EOSINOPHILS # (AUTO) 0.1 x10^3/uL (0.0-0.2); EOSINOPHILS % (AUTO) 1.1 % (0.9-2.9); HEMATOCRIT 30.2 % (36.0-47.0); LYMPHOCYTES # (AUTO) 2.8 X10^3/uL (1.3-2.9); LYMPHOCYTES % (AUTO) 28.4 % (21.0-51.0); MEAN CORPUSCULAR HEMOGLOBIN 30.2 pg (27.0-34.0); MEAN CORPUSCULAR HGB CONC 33.1 g/dL (33.0-35.0); MEAN CORPUSCULAR VOLUME 91.4 fL (80.0-100.0); MEAN PLATELET VOLUME 7.6 fL (7.4-11.0); MONOCYTES # (AUTO) 0.7 x10^3/uL (0.3-0.8); MONOCYTES % (AUTO) 6.8 % (0.0-13.0); NEUTROPHILS # (AUTO) 6.2 x10^3/uL (2.2-4.8); NEUTROPHILS % (AUTO) 63.3 % (42.0-75.0); PLATELET COUNT 144 X10^3/uL (150.0-450.0); RED CELL DISTRIBUTION WIDTH 14.1 % (11.6-16.5); WHITE BLOOD COUNT 9.8 X10^3/uL (3.6-10.0)
--- NOTE | 2024-02-03 13:03 | EKG ---
Test Reason : HYPERTENSION Blood Pressure : */* mmHG Vent. Rate : 78 BPM Atrial Rate : 78 BPM P-R Int : 204 ms QRS Dur : 92 ms QT Int : 362 ms P-R-T Axes : 92 -20 19 degrees QTc Int : 412 ms Normal sinus rhythm Septal infarct , age undetermined Nonspecific ST abnormality Abnormal ECG No previous ECGs available Confirmed by Tom Dodge MD ([id number]) on 02/03/2024 3:15:46 PM Referred By: Confirmed By: Tom Dodge MD
[2024-02-03 13:20] LABS: ALANINE AMINOTRANSFERASE 12 Units/L (12-78); ALBUMIN 3.7 g/dL (3.4-5.0); ALKALINE PHOSPHATASE 65 Units/L (46-116); AMYLASE 60 Units/L (25-115); ASPARTATE AMINO TRANSFERASE 15 Units/L (15-37); BLOOD UREA NITROGEN 64 mg/dL (7-18); CALCIUM 9.2 mg/dL (8.5-10.1); CARBON DIOXIDE 21.2 mmol/L (21-32); CHLORIDE 102 mmol/L (98-107); COR NA(FOR HYPERGLY) 140 mmol/L (136-145); CREATINE KINASE 27 Units/L (26-192); CREATININE 2.36 mg/dL (0.55-1.02); GLUCOSE 176 mg/dL (65-99); LIPASE 94 Units/L (16-77); POTASSIUM 4.6 mmol/L (3.5-5.1); SODIUM 138 mmol/L (136-145); TOTAL PROTEIN 6.8 g/dL (6.4-8.2); eGFR NON BLACK RACES 21 (>60)
--- NOTE | 2024-02-03 13:22 | RAD ---
EXAM:AP chestHISTORY:SOBCOMPARISON:Chest CT 06/04/2023FINDINGS:Heart size normal with clear lungs and pleural spaces. There is no mediastinal or hilar abnormality.IMPRESSION:THIS IS AN ELECTRONICALLY VERIFIED FINAL REPORT02/03/2024 1:19 PM - Electronically signed by Slim Barahona MD
[2024-02-03 14:43] LABS: APPEARANCE,URINE CLEAR (CLEAR); BACTERIA,URINE 1+ /HPF (NEGATIVE); COLOR,URINE DARK YELLOW (YELLOW); SQUAMOUS EPITHELIAL CELL,UR MODERATE /HPF (NEGATIVE)
[2024-02-03] MEDS ORDERED: ROCEPHIN VIAL 1 GRAM ONE (15:32)
[2024-02-03] MEDS ORDERED: NS 1,000 ML IV 1,000 ML ONE (15:35)
[2024-02-03] MEDS: ROCEPHIN VIAL 1 GRAM IVP ONE (15:43)
[2024-02-03] MEDS: NS 1,000 ML IV 1,000 ML IV ONE (15:43)
[2024-02-03] MEDS ORDERED: PATIENT'S HOME MEDICATION (Temazepam 30 mg capsule) PO PRN (18:41)
[2024-02-03] MEDS: ROCEPHIN VIAL 1 GRAM 1 G in NS 100 ML IV 100 ML IV SCH (18:44)
[2024-02-03] MEDS: DITROPAN TAB 5 MG PO SCH (21:12)
[2024-02-03] MEDS: PriLOSEC PO SCH (21:13)
[2024-02-03] MEDS: RESTORIL CAP 15 MG PO SCH (21:13)
[2024-02-04] MEDS: NS 1,000 ML IV 1,000 ML IV SCH (01:29)
[2024-02-04 06:10] LABS: BASOPHILS % (AUTO) 0.6 % (0.2-1.0); EOSINOPHILS # (AUTO) 0.2 x10^3/uL (0.0-0.2); EOSINOPHILS % (AUTO) 2.9 % (0.9-2.9); HEMATOCRIT 25.4 % (36.0-47.0); HEMOGLOBIN 8.4 g/dL (12.0-16.0); LYMPHOCYTES % (AUTO) 40.9 % (21.0-51.0); MEAN CORPUSCULAR HEMOGLOBIN 30.2 pg (27.0-34.0); MEAN CORPUSCULAR HGB CONC 33.1 g/dL (33.0-35.0); MEAN CORPUSCULAR VOLUME 91.3 fL (80.0-100.0); MEAN PLATELET VOLUME 7.9 fL (7.4-11.0); MONOCYTES # (AUTO) 0.7 x10^3/uL (0.3-0.8); MONOCYTES % (AUTO) 9.5 % (0.0-13.0); NEUTROPHILS # (AUTO) 3.4 x10^3/uL (2.2-4.8); NEUTROPHILS % (AUTO) 46.1 % (42.0-75.0); PLATELET COUNT 116 X10^3/uL (150.0-450.0); RED BLOOD COUNT 2.78 X10^6/uL (3.5-5.4); RED CELL DISTRIBUTION WIDTH 14.3 % (11.6-16.5); WHITE BLOOD COUNT 7.4 X10^3/uL (3.6-10.0)
[2024-02-04] MEDS: SYNTHROID 25 mcg TAB PO SCH (06:12)
[2024-02-04 06:21] LABS: ALBUMIN 3.1 g/dL (3.4-5.0); CALCIUM 8.4 mg/dL (8.5-10.1); CARBON DIOXIDE 25.6 mmol/L (21-32); CHOL/HDL RATIO 4.9 (0.0-5.0); COR CA(FOR HYPOALB) 9.1 mg/dL (8.5-10.1); CREATININE 1.84 mg/dL (0.55-1.02); POTASSIUM 3.6 mmol/L (3.5-5.1); TOTAL PROTEIN 5.9 g/dL (6.4-8.2)
[2024-02-04] MEDS: GLUCOTROL PO SCH (07:20)
[2024-02-04] MEDS ORDERED: CONSULT PHARMACY - POTASSIUM & MAGNESIUM XX SCH (08:00)
[2024-02-04] MEDS: ZOLOFT PO SCH (08:46)
[2024-02-04] MEDS: MICRO K EXTEN CAP 10 MEQ PO SCH (08:47)
[2024-02-04] MEDS: NEURONTIN CAP 300 MG PO SCH (08:47)
[2024-02-04] MEDS: LIPITOR TAB 20 MG PO SCH (08:47)
[2024-02-04] MEDS: FOLIC ACID TAB 1 MG PO SCH (08:47)
[2024-02-04] MEDS: CYMBALTA PO SCH (08:47)
[2024-02-04] MEDS: ZyrTEC TAB 10 MG PO SCH (08:47)
[2024-02-04] MEDS ORDERED: ZyrTEC TAB 10 MG PO SCH (09:00)
[2024-02-04] MEDS ORDERED: ROCEPHIN VIAL 1 GRAM 1 G in NS 100 ML IV 100 ML IV SCH (09:00)
[2024-02-04] MEDS ORDERED: VASOTEC TAB 20 MG PO SCH (09:00)
[2024-02-04] MEDS ORDERED: LASIX PO SCH (09:00)
[2024-02-04 09:37] VITALS: BMI 30.2
--- NOTE | 2024-02-04 10:02 | DR.H&P ---
H&P History & Physical for Day of: H&P Date: 02/04/24 Chief Complaint Chief Complaint: SOB, weakness, poor oral intake History of Present Illness History of Present Illness: Ms Jett is a 78y/o female with a PMH of NHL, oral cancer, anal/rectal cancer, anemia, HTN, HLD, DM, hypothyroidism, MDD/Anxiety presented with worsening SOB and weakness. She also reports having abdominal pain. ER work up showed elevated d-dimer, trop neg and CXR neg. UA was concerning for UTI. Patient did have decreased renal function, Cr 2.36. She was started on IV antibiotics and fluids. She is currently on room air. She reports having intermittent episodes of SOB and weakness for the past few months. She was seeing pulmonary and does not use O2 at home. She reports having NHL with recurrence along with oral cancer and anal/rectal cancer. She has had several rounds of chemotherapy and radiation over the years. She sees Dr Chavez. She states she was told that there was abdominal mass that's concerning for lymphoma. She reports intermittent nausea, denies vomiting or diarrhea. She reports seeing Cardio in the last 6 months, had Echo and holter which was normal. Labs/imaging reviewed -WBC 7.4 Hgb 8.4 Plt 116 BUN/Cr:54/1.8 D-dimer: 1.47 Trop x 1 (-) -UA: suggestive of infection, Urine Cx pending -CXR: no acute process Plan: continue hydration with NS, continue Rocephin. Follow pending cultures. Monitor H&H. Will check anemia panel. Patient needs CT-chest to r/u PE along with CTAP due to concerning for abdominal pain. Will hydrate patient today and repeat CMP in the AM. Add lovenox for DVT ppx. PT/OT as tolerated. Resume home medications. Hold nephrotoxic medications and lasix. Replace electrolytes as per protocol. Monitor AM labs/imaging. Time spent for clinical assessment, reviewing labs/imaging, physical exam, decision making and documentation greater than 45 mins. Past Medical History Past Medical History: Anemia, Angina, Anxiety, Arthritis, Asthma, Coronary Artery Disease, Depression, Diabetes, Dyslipidemia, GERD, Hypertension, Hypothyroidism and Renal Disease Additional Medical History: PULMONARY HYPERTENSION; HISTORY OF SQUAMOUS CELL CA OF ANAL CAVITY, HODGKIN'S LYMPHOMA, NON-HODGKIN'S LYMPHOMA, CARCINOMA IN SITU MOUTH. Past Surgical History Surgical History: Hysterectomy, Ortho Surgery and Other Family History Family Medical History: Diabetes Mellitus, Cancer and Hypertension Social History Does patient currently use any type of tobacco product: No Have you used tobacco products in the last 12 months: No Type of Tobacco Use: None Does any household member use tobacco: No Alcohol Use: None Drug Use: None Medications Home Medications: Home Medications Medication Instructions Recorded Confirmed Type atorvastatin 20 mg tablet 1 tab PO QDAY 03/26/22 02/03/24 History enalapril maleate 20 mg tablet 1 tab PO QDAY 03/26/22 02/03/24 History ergocalciferol (vitamin D2) 1,250 1 cap PO WEEKLY 03/26/22 02/03/24 History mcg (50,000 unit) capsule (Vitamin D2) glipizide 10 mg tablet 1 tab PO BID 03/26/22 02/03/24 History levothyroxine 25 mcg tablet 1 tab PO QDAY 03/26/22 02/03/24 History omeprazole 20 mg capsule,delayed 1 cap PO BID 03/26/22 02/03/24 History release cetirizine 10 mg tablet 10 mg PO DAILY 02/03/24 02/03/24 History duloxetine 60 mg capsule,delayed 60 mg PO QDAY 02/03/24 02/03/24 History release folic acid 1 mg tablet 1 mg PO DAILY 02/03/24 02/03/24 History furosemide 20 mg tablet 20 mg PO DAILY 02/03/24 02/03/24 History gabapentin 300 mg capsule 300 mg PO QDAY 02/03/24 02/03/24 History oxybutynin chloride 5 mg tablet 5 mg PO BID 02/03/24 02/03/24 History potassium chloride 10 mEq 10 meq PO QDAY 02/03/24 02/03/24 History tablet,extended release sertraline 25 mg tablet 25 mg PO QDAY 02/03/24 02/03/24 History temazepam 15 mg capsule 30 mg PO HS 02/03/24 02/03/24 History temazepam 30 mg capsule 30 mg PO QPM PRN 02/03/24 02/03/24 History Allergies Allergies Allergy/AdvReac Type Severity Reaction Status Date / Time codeine Allergy Unknown Verified 05/24/22 11:38 fire ant Allergy Unknown Verified 02/06/23 16:13 shrimp Allergy Unknown Verified 10/27/22 11:38 Labs 02/04/24 05:20 02/04/24 05:20 Labs: 02/03/24 14:10 Urine,Clean Catch Urine Culture - Final Laboratory WBC 7.4 X10^3/uL (3.6-10.0) 02/04/24 05:20 RBC 2.78 X10^6/uL (3.5-5.4) L 02/04/24 05:20 Hgb 8.4 g/dL (12.0-16.0) L 02/04/24 05:20 Hct 25.4 % (36.0-47.0) L 02/04/24 05:20 MCV 91.3 fL (80.0-100.0) 02/04/24 05:20 MCH 30.2 pg (27.0-34.0) 02/04/24 05:20 MCHC 33.1 g/dL (33.0-35.0) 02/04/24 05:20 RDW 14.3 % (11.6-16.5) 02/04/24 05:20 Plt Count 116 X10^3/uL (150.0-450.0) L 02/04/24 05:20 MPV 7.9 fL (7.4-11.0) 02/04/24 05:20 Neut % (Auto) 46.1 % (42.0-75.0) 02/04/24 05:20 Lymph % (Auto) 40.9 % (21.0-51.0) 02/04/24 05:20 [place] % (Auto) 9.5 % (0.0-13.0) 02/04/24 05:20 Eos % (Auto) 2.9 % (0.9-2.9) 02/04/24 05:20 Baso % (Auto) 0.6 % (0.2-1.0) 02/04/24 05:20 Neut # (Auto) 3.4 x10^3/uL (2.2-4.8) 02/04/24 05:20 Lymph # (Auto) 3.0 X10^3/uL (1.3-2.9) H 02/04/24 05:20 [place] # (Auto) 0.7 x10^3/uL (0.3-0.8) 02/04/24 05:20 Eos # (Auto) 0.2 x10^3/uL (0.0-0.2) 02/04/24 05:20 Baso # (Auto) 0.0 X10^3/uL (0.0-0.1) 02/04/24 05:20 Absolute Nucleated RBC 0.1 /100WBC 02/04/24 05:20 D-Dimer 1.47 ug/ml (0.0-0.57) H 02/03/24 12:54 Sodium 143 mmol/L (136-145) 02/04/24 05:20 Corrected Sodium 144 mmol/L (136-145) 02/04/24 05:20 Potassium 3.6 mmol/L (3.5-5.1) 02/04/24 05:20 Chloride 109 mmol/L (98-107) H 02/04/24 05:20 Carbon Dioxide 25.6 mmol/L (21-32) 02/04/24 05:20 BUN 54 mg/dL (7-18) H 02/04/24 05:20 Creatinine 1.84 mg/dL (0.55-1.02) H 02/04/24 05:20 Est GFR (MDRD) Af Amer 34 (>60) L 02/04/24 05:20 Est GFR (MDRD) Non-Af 28 (>60) L 02/04/24 05:20 Glucose 133 mg/dL (65-99) H 02/04/24 05:20 POC Glucose (mg/dL) 117 mg/dL (65-99) H 02/04/24 07:16 Calcium 8.4 mg/dL (8.5-10.1) L 02/04/24 05:20 Corrected Calcium 9.1 mg/dL (8.5-10.1) 02/04/24 05:20 Magnesium 2.2 mg/dL (2.0-2.9) 02/04/24 05:20 Total Bilirubin 0.70 mg/dL (0.2-1.0) 02/04/24 05:20 AST 14 Units/L (15-37) L 02/04/24 05:20 ALT 13 Units/L (12-78) 02/04/24 05:20 Alkaline Phosphatase 53 Units/L (46-116) 02/04/24 05:20 Creatine Kinase 27 Units/L (26-192) 02/03/24 12:54 Troponin I High Sens 7.0 ng/L (4.0-60.0) 02/03/24 12:54 B-Natriuretic Peptide 28.1 pg/mL (0-79) 02/03/24 12:54 Total Protein 5.9 g/dL (6.4-8.2) L 02/04/24 05:20 Albumin 3.1 g/dL (3.4-5.0) L 02/04/24 05:20 Globulin 2.8 g/dL (2.5-4.5) 02/04/24 05:20 Albumin/Globulin Ratio 1.1 Ratio (1.1-2.1) 02/04/24 05:20 Triglycerides 215 mg/dL (0-150) H 02/04/24 05:20 Cholesterol 177 mg/dL (0-200) 02/04/24 05:20 LDL Cholesterol, Calc 98 mg/dL (0-100) 02/04/24 05:20 HDL Cholesterol 36 mg/dL (40-60) L 02/04/24 05:20 Cholesterol/HDL Ratio 4.9 (0.0-5.0) 02/04/24 05:20 Amylase 60 Units/L (25-115) 02/03/24 12:54 Lipase 94 Units/L (16-77) H 02/03/24 12:54 Specimen Type Clean catch urine 02/03/24 14:10 Urine Color Dark yellow (YELLOW) 02/03/24 14:10 Urine Appearance Clear (CLEAR) 02/03/24 14:10 Urine pH Cancelled 02/03/24 14:10 Ur Specific [place] Cancelled 02/03/24 14:10 Urine Protein Cancelled 02/03/24 14:10 Urine Glucose (UA) Cancelled 02/03/24 14:10 Urine Ketones Cancelled 02/03/24 14:10 Urine Blood Cancelled 02/03/24 14:10 Urine Nitrite Cancelled 02/03/24 14:10 Urine Bilirubin Cancelled 02/03/24 14:10 Urine Urobilinogen Cancelled 02/03/24 14:10 Ur Leukocyte Esterase Cancelled 02/03/24 14:10 Urine RBC 10-20 /HPF (0-3) A 02/03/24 14:10 Urine WBC 20-30 /HPF (0-5) A 02/03/24 14:10 Ur Squamous Epith Cells Moderate /HPF (NEGATIVE) 02/03/24 14:10 Urine Bacteria 1+ /HPF (NEGATIVE) 02/03/24 14:10 Ur Culture Indicated? Yes/culture set up 02/03/24 14:10 Review of Systems Constitutional: Weakness Eyes: No Symptoms Reported ENT: No Symptoms Reported Respiratory: Cough, Shortness of Breath and SOB with Excertion Cardiovascular: No Symptoms Reported Gastrointestinal: Abdominal Pain Genitourinary: No Symptoms Reported Musculoskeletal: No Symptoms Reported Skin: No Symptoms Reported Neurological: No Symptoms Reported Physical Exam Vital Signs: Vital Signs Temperature 97.2 F Temperature 97.8 F Pulse Rate [Left Brachial] 73 Pulse Rate [Left Brachial] 70 Respiratory Rate 18 Respiratory Rate 18 Blood Pressure [Left Arm] 121/57 Blood Pressure [Right Arm] 112/56 O2 Sat by Pulse Oximetry 99 O2 Sat by Pulse Oximetry 99 Oriented: Normal Eyes: Normal Throat: Normal Respiratory: Clear Throughout Cardiovascular: Normal Auscultation: Bowel Sounds: Normal Palpation: Normal Tenderness: Epigastric and Mild Skin: Normal Musculoskeletal: Normal Psychiatric: Normal Mood Description: Calm Affect: Normal Speech Pattern: Clear and Appropriate Assessment/Plan (1) UTI (urinary tract infection): Qualifiers: Hematuria presence: with hematuria Urinary tract infection type: site unspecified Qualified Code(s): N39.0 - Urinary tract infection, site not specified; R31.9 - Hematuria, unspecified Status: Acute (2) Dehydration: Status: Acute (3) Acute renal insufficiency: Status: Acute (4) Anemia: Qualifiers: Anemia type: unspecified type Qualified Code(s): D64.9 - Anemia, unspecified Status: Acute (5) History of coronary artery disease: Status: Chronic (6) Hypertension: Qualifiers: Hypertension type: essential hypertension Qualified Code(s): I10 - Essential (primary) hypertension Status: Chronic (7) Diabetes mellitus, type 2: Qualifiers: Diabetes mellitus complication status: with unspecified complications Diabetes mellitus intermediate project manager insulin use: with intermediate project manager use Qualified Code(s): E11.8 - Type 2 diabetes mellitus with unspecified complications; Z79.4 - group home (current) use of insulin; Z79.4 - group home (current) use of insulin; Z79.4 - group home (current) use of insulin; Z79.4 - group home (current) use of insulin Status: Chronic (8) History of rectal cancer: Status: Chronic (9) History of mouth cancer: Status: Chronic (10) History of non-Hodgkin's lymphoma: Status: Chronic (11) Pulmonary hypertension: Status: Acute Review H&P Reviewed: Yes Patient was examined?: Yes
[2024-02-04 10:47] LABS: IRON 86 ug/dL (50-175); TOTAL IRON BINDING CAPACITY 146 ug/dL (250-450)
[2024-02-04] MEDS: HEPARIN SODIUM INJ 5000 UNITS SC SCH (11:17)
[2024-02-05 06:20] LABS: BASOPHILS % (AUTO) 0.7 % (0.2-1.0); EOSINOPHILS # (AUTO) 0.2 x10^3/uL (0.0-0.2); EOSINOPHILS % (AUTO) 3.5 % (0.9-2.9); HEMATOCRIT 21.8 % (36.0-47.0); HEMOGLOBIN 7.3 g/dL (12.0-16.0); LYMPHOCYTES # (AUTO) 2.5 X10^3/uL (1.3-2.9); LYMPHOCYTES % (AUTO) 40.9 % (21.0-51.0); MEAN CORPUSCULAR HEMOGLOBIN 30.7 pg (27.0-34.0); MEAN CORPUSCULAR HGB CONC 33.5 g/dL (33.0-35.0); MEAN CORPUSCULAR VOLUME 91.6 fL (80.0-100.0); MONOCYTES # (AUTO) 0.6 x10^3/uL (0.3-0.8); MONOCYTES % (AUTO) 10.1 % (0.0-13.0); NEUTROPHILS # (AUTO) 2.7 x10^3/uL (2.2-4.8); NEUTROPHILS % (AUTO) 44.8 % (42.0-75.0); PLATELET COUNT 103 X10^3/uL (150.0-450.0); RED BLOOD COUNT 2.38 X10^6/uL (3.5-5.4); RED CELL DISTRIBUTION WIDTH 14.3 % (11.6-16.5); WHITE BLOOD COUNT 6.1 X10^3/uL (3.6-10.0)
[2024-02-05 06:56] LABS: ALANINE AMINOTRANSFERASE 10 Units/L (12-78); ALBUMIN 2.7 g/dL (3.4-5.0); ALKALINE PHOSPHATASE 46 Units/L (46-116); ASPARTATE AMINO TRANSFERASE 18 Units/L (15-37); BLOOD UREA NITROGEN 33 mg/dL (7-18); CALCIUM 7.7 mg/dL (8.5-10.1); CHLORIDE 113 mmol/L (98-107); COR CA(FOR HYPOALB) 8.7 mg/dL (8.5-10.1); CREATININE 1.23 mg/dL (0.55-1.02); GLUCOSE 59 mg/dL (65-99); MAGNESIUM 1.8 mg/dL (2.0-2.9); POTASSIUM 3.6 mmol/L (3.5-5.1); SODIUM 145 mmol/L (136-145); TOTAL PROTEIN 5.2 g/dL (6.4-8.2); eGFR NON BLACK RACES 45 (>60)
--- NOTE | 2024-02-05 09:42 | PCM.PROG ---
Progress Note Progress Note for Day of Date of Exam: 02/05/24 Subjective Subjective: Patient seen at bedside, no acute events overnight. She states she is feeling better. She still has exertional dyspnea. She is on room air. She is scheduled to go to [place] this morning for VQ scan as that test is currently not available here. Her hgb did drop to 7.3, renal function is improving. Patient is allergic to contrast and has to be pre-medicated with steroids and benadryl. Labs/imaging reviewed -Hgb 7.3 Plt 103 BUN/Cr: 33/1.23 Ma.8 K:3.6 -Urine Cx: contamination Plan: follow VQ scan results to r/o PE. Transfuse 2 units PRBCs. Monitor H&H. Continue hydration. Continue Rocephin, repeat urine cx. Replace electrolytes as per protocol. PT/OT as tolerated. Continue home medications. Monitor AM labs/imaging. Time spent for clinical assessment, reviewing labs/imaging, physical exam, decision making and documentation greater than 45 mins. Past Medical Family Social History Allergies: Allergies codeine Allergy (Unknown, Verified 05/24/22 11:38) fire ant Allergy (Unknown, Verified 02/06/23 16:13) "ANT BITES" shrimp Allergy (Unknown, Verified 05/24/22 11:38) Vital Signs and I&O's Vital Signs: Vital Signs Temperature 98.3 F Pulse Rate [Left Brachial] 68 Respiratory Rate 20 Blood Pressure [Left Arm] 127/59 O2 Sat by Pulse Oximetry 97 Intake and Output: Intake & Output 02/02/24 02/03/24 02/04/24 02/05/24 23:59 23:59 23:59 23:59 Intake Total 200 / 200 3151 / 3151 0 / 0 Balance 200 / 200 3151 / 3151 0 / 0 Physical Exam Oriented: Normal Eyes: Normal Throat: Normal Respiratory: Generalized and Diminished Cardiovascular: Normal Auscultation: Bowel Sounds: Normal Palpation: Normal Tenderness: Epigastric and Mild Skin: Normal Musculoskeletal: Normal Psychiatric: Normal Mood Description: Calm Affect: Normal Speech Pattern: Clear and Appropriate Laboratory and Diagnostics 02/05/24 05:15 02/05/24 05:15 Labs: 02/03/24 14:10 Urine,Clean Catch Urine Culture - Final Laboratory WBC 6.1 X10^3/uL (3.6-10.0) 02/05/24 05:15 RBC 2.38 X10^6/uL (3.5-5.4) L 02/05/24 05:15 Hgb 7.3 g/dL (12.0-16.0) L 02/05/24 05:15 Hct 21.8 % (36.0-47.0) L 02/05/24 05:15 MCV 91.6 fL (80.0-100.0) 02/05/24 05:15 MCH 30.7 pg (27.0-34.0) 02/05/24 05:15 MCHC 33.5 g/dL (33.0-35.0) 02/05/24 05:15 RDW 14.3 % (11.6-16.5) 02/05/24 05:15 Plt Count 103 X10^3/uL (150.0-450.0) L 02/05/24 05:15 MPV 8.0 fL (7.4-11.0) 02/05/24 05:15 Neut % (Auto) 44.8 % (42.0-75.0) 02/05/24 05:15 Lymph % (Auto) 40.9 % (21.0-51.0) 02/05/24 05:15 [place] % (Auto) 10.1 % (0.0-13.0) 02/05/24 05:15 Eos % (Auto) 3.5 % (0.9-2.9) H 02/05/24 05:15 Baso % (Auto) 0.7 % (0.2-1.0) 02/05/24 05:15 Neut # (Auto) 2.7 x10^3/uL (2.2-4.8) 02/05/24 05:15 Lymph # (Auto) 2.5 X10^3/uL (1.3-2.9) 02/05/24 05:15 [place] # (Auto) 0.6 x10^3/uL (0.3-0.8) 02/05/24 05:15 Eos # (Auto) 0.2 x10^3/uL (0.0-0.2) 02/05/24 05:15 Baso # (Auto) 0.0 X10^3/uL (0.0-0.1) 02/05/24 05:15 Absolute Nucleated RBC 0.1 /100WBC 02/05/24 05:15 D-Dimer 1.47 ug/ml (0.0-0.57) H 02/03/24 12:54 Sodium 145 mmol/L (136-145) 02/05/24 05:15 Corrected Sodium TNP 02/05/24 05:15 Potassium 3.6 mmol/L (3.5-5.1) 02/05/24 05:15 Chloride 113 mmol/L (98-107) H 02/05/24 05:15 Carbon Dioxide 21.0 mmol/L (21-32) 02/05/24 05:15 BUN 33 mg/dL (7-18) H 02/05/24 05:15 Creatinine 1.23 mg/dL (0.55-1.02) H 02/05/24 05:15 Est GFR (MDRD) Af Amer 55 (>60) L 02/05/24 05:15 Est GFR (MDRD) Non-Af 45 (>60) L 02/05/24 05:15 Glucose 59 mg/dL (65-99) L 02/05/24 05:15 POC Glucose (mg/dL) 117 mg/dL (65-99) H 02/04/24 07:16 Calcium 7.7 mg/dL (8.5-10.1) L 02/05/24 05:15 Corrected Calcium 8.7 mg/dL (8.5-10.1) 02/05/24 05:15 Magnesium 1.8 mg/dL (2.0-2.9) L 02/05/24 05:15 Iron 86 ug/dL (50-175) 02/04/24 05:20 TIBC 146 ug/dL (250-450) L 02/04/24 05:20 Ferritin 991 ng/mL (8-252) H 02/04/24 05:20 Total Bilirubin 0.50 mg/dL (0.2-1.0) 02/05/24 05:15 AST 18 Units/L (15-37) 02/05/24 05:15 ALT 10 Units/L (12-78) L 02/05/24 05:15 Alkaline Phosphatase 46 Units/L (46-116) 02/05/24 05:15 Creatine Kinase 27 Units/L (26-192) 02/03/24 12:54 Troponin I High Sens 7.0 ng/L (4.0-60.0) 02/03/24 12:54 B-Natriuretic Peptide 28.1 pg/mL (0-79) 02/03/24 12:54 Total Protein 5.2 g/dL (6.4-8.2) L 02/05/24 05:15 Albumin 2.7 g/dL (3.4-5.0) L 02/05/24 05:15 Globulin 2.5 g/dL (2.5-4.5) 02/05/24 05:15 Albumin/Globulin Ratio 1.1 Ratio (1.1-2.1) 02/05/24 05:15 Triglycerides 215 mg/dL (0-150) H 02/04/24 05:20 Cholesterol 177 mg/dL (0-200) 02/04/24 05:20 LDL Cholesterol, Calc 98 mg/dL (0-100) 02/04/24 05:20 HDL Cholesterol 36 mg/dL (40-60) L 02/04/24 05:20 Cholesterol/HDL Ratio 4.9 (0.0-5.0) 02/04/24 05:20 Amylase 60 Units/L (25-115) 02/03/24 12:54 Lipase 94 Units/L (16-77) H 02/03/24 12:54 Vitamin B12 431 pg/mL (193-986) 02/04/24 05:20 Specimen Type Clean catch urine 02/03/24 14:10 Urine Color Dark yellow (YELLOW) 02/03/24 14:10 Urine Appearance Clear (CLEAR) 02/03/24 14:10 Urine pH Cancelled 02/03/24 14:10 Ur Specific [place] Cancelled 02/03/24 14:10 Urine Protein Cancelled 02/03/24 14:10 Urine Glucose (UA) Cancelled 02/03/24 14:10 Urine Ketones Cancelled 02/03/24 14:10 Urine Blood Cancelled 02/03/24 14:10 Urine Nitrite Cancelled 02/03/24 14:10 Urine Bilirubin Cancelled 02/03/24 14:10 Urine Urobilinogen Cancelled 02/03/24 14:10 Ur Leukocyte Esterase Cancelled 02/03/24 14:10 Urine RBC 10-20 /HPF (0-3) A 02/03/24 14:10 Urine WBC 20-30 /HPF (0-5) A 02/03/24 14:10 Ur Squamous Epith Cells Moderate /HPF (NEGATIVE) 02/03/24 14:10 Urine Bacteria 1+ /HPF (NEGATIVE) 02/03/24 14:10 Ur Culture Indicated? Yes/culture set up 02/03/24 14:10 Plan (1) Dyspnea: Status: Acute Qualifiers: Dyspnea type: dyspnea on exertion Qualified Code(s): R06.09 - Other forms of dyspnea (2) Anemia: Status: Acute Qualifiers: Anemia type: unspecified type Qualified Code(s): D64.9 - Anemia, unspecified (3) UTI (urinary tract infection): Status: Acute Qualifiers: Hematuria presence: with hematuria Urinary tract infection type: site unspecified Qualified Code(s): N39.0 - Urinary tract infection, site not specified; R31.9 - Hematuria, unspecified (4) Dehydration: Status: Acute (5) Acute renal insufficiency: Status: Acute (6) History of coronary artery disease: Status: Chronic (7) Hypertension: Status: Chronic Qualifiers: Hypertension type: essential hypertension Qualified Code(s): I10 - Essential (primary) hypertension (8) Diabetes mellitus, type 2: Status: Chronic Qualifiers: Diabetes mellitus complication status: with unspecified complications Diabetes mellitus rodent exterminator insulin use: with halfway use Qualified Code(s): E11.8 - Type 2 diabetes mellitus with unspecified complications; Z79.4 - rodent exterminator (current) use of insulin; Z79.4 - snf (current) use of insulin; Z79.4 - snf (current) use of insulin; Z79.4 - snf (current) use of insulin (9) History of rectal cancer: Status: Chronic (10) History of mouth cancer: Status: Chronic (11) History of non-Hodgkin's lymphoma: Status: Chronic (12) Pulmonary hypertension: Status: Acute
[2024-02-05] MEDS: NS 500 ML IV 500 ML IV SCH (15:52)
[2024-02-05 17:29] VITALS: RESP 18
[2024-02-05 17:44] LABS: BILIRUBIN,URINE NEGATIVE (NEGATIVE); BLOOD/HEMOGLOBIN,URINE 1+ (NEGATIVE); GLUCOSE, URINE NEGATIVE (NEGATIVE); KETONES,URINE NEGATIVE (NEGATIVE); LEUKOCYTE ESTERASE ,URINE 1+ (NEGATIVE); NITRITES,URINE NEGATIVE (NEGATIVE); PROTEIN,URINE NEGATIVE (NEGATIVE); UROBILINOGEN,URINE NORMAL (NORMAL)
[2024-02-05 17:46] LABS: APPEARANCE,URINE CLEAR (CLEAR); COLOR,URINE YELLOW (YELLOW)
[2024-02-05 17:49] LABS: SQUAMOUS EPITHELIAL CELL,UR MODERATE /HPF (NEGATIVE)
[2024-02-05 17:50] LABS: BACTERIA,URINE 1+ /HPF (NEGATIVE)
[2024-02-05] MEDS: MILK OF MAGNESIA PO PRN (20:33)
[2024-02-05] MEDS: COLACE CAP 100 MG PO PRN (20:33)
[2024-02-05] MEDS ORDERED: NS 250 ML IV 250 ML IV ONE (22:27)
[2024-02-06 05:19] LABS: BASOPHILS # (AUTO) 0.1 X10^3/uL (0.0-0.1); BASOPHILS % (AUTO) 0.7 % (0.2-1.0); EOSINOPHILS # (AUTO) 0.3 x10^3/uL (0.0-0.2); EOSINOPHILS % (AUTO) 3.3 % (0.9-2.9); HEMATOCRIT 33.8 % (36.0-47.0); LYMPHOCYTES # (AUTO) 3.3 X10^3/uL (1.3-2.9); LYMPHOCYTES % (AUTO) 42.4 % (21.0-51.0); MEAN CORPUSCULAR HGB CONC 32.8 g/dL (33.0-35.0); MEAN CORPUSCULAR VOLUME 91.4 fL (80.0-100.0); MEAN PLATELET VOLUME 7.8 fL (7.4-11.0); MONOCYTES # (AUTO) 0.6 x10^3/uL (0.3-0.8); NEUTROPHILS # (AUTO) 3.5 x10^3/uL (2.2-4.8); NEUTROPHILS % (AUTO) 45.6 % (42.0-75.0); PLATELET COUNT 100 X10^3/uL (150.0-450.0); RED CELL DISTRIBUTION WIDTH 14.4 % (11.6-16.5); WHITE BLOOD COUNT 7.8 X10^3/uL (3.6-10.0)
[2024-02-06 05:23] LABS: ALANINE AMINOTRANSFERASE 9 Units/L (12-78); ALBUMIN 2.9 g/dL (3.4-5.0); ALKALINE PHOSPHATASE 53 Units/L (46-116); ASPARTATE AMINO TRANSFERASE 20 Units/L (15-37); BLOOD UREA NITROGEN 21 mg/dL (7-18); CALCIUM 8.2 mg/dL (8.5-10.1); CARBON DIOXIDE 22.2 mmol/L (21-32); CHLORIDE 113 mmol/L (98-107); COR CA(FOR HYPOALB) 9.1 mg/dL (8.5-10.1); CREATININE 1.12 mg/dL (0.55-1.02); GLUCOSE 68 mg/dL (65-99); MAGNESIUM 1.9 mg/dL (2.0-2.9); POTASSIUM 3.9 mmol/L (3.5-5.1); SODIUM 145 mmol/L (136-145); TOTAL PROTEIN 5.8 g/dL (6.4-8.2); eGFR NON BLACK RACES 50 (>60)
[2024-02-06 05:26] LABS: HEMOGLOBIN 11.1 g/dL (12.0-16.0)
[2024-02-06] MEDS ORDERED: CONSULT PHARMACY - POTASSIUM & MAGNESIUM XX SCH (06:00)
[2024-02-06 08:31] VITALS: BP 137/77; PULSE 70; TEMP 98; O2SAT 97
[2024-02-06] MEDS: MAG-OX TAB PO SCH (09:05)
--- NOTE | 2024-02-06 09:43 | W.DIS.FURT ---
Summary of Discharge Discharge Summary of Date Date of Exam: 02/06/24 Admission Date Date of Admission: 02/03/24 Admission Diagnosis Patient Problems (Updated 02/05/24 @ 09:40 by Beatriz Schwartz) Acute renal insufficiency (Acute) N28.9 Dehydration (Acute) E86.0 UTI (urinary tract infection) (Acute) N39.0 Hospital Course: Patient is a 78 year old female admitted for dyspnea, anemia, acute cystitis, an d dehyration. Pt was treated in the [facility], dyspnea resolved. Pt on room air. V/Q scan negative. Patient was transfused 2 units packed red blood cells, hemoglobin responded appropriately. Renal function improved back to normal limits with IVF. Electrolytes repleted per protocol. Pt received IV rocephin. Urine culture contamination, repeat pending, will follow up final. Otherwise, patient stable for discharge. Rx keflex. Instructed to follow up with pcp in 1 week. Vital Signs: Vital Signs (72 hours) 02/03/24 11:29 02/03/24 12:02 02/03/24 12:02 Temperature 98.1 F Pulse Rate 84 94 H Pulse Rate [Left Brachial] Respiratory Rate 24 Blood Pressure 116/55 150/125 Blood Pressure [Left Arm] Blood Pressure [Right Arm] O2 Sat by Pulse Oximetry 98 95 Oxygen Delivery Method Room Air FIO2% 02/03/24 12:15 02/03/24 12:30 02/03/24 12:31 Temperature Pulse Rate 79 82 Pulse Rate [Left Brachial] Respiratory Rate 28 H 37 H Blood Pressure 68/48 Blood Pressure [Left Arm] Blood Pressure [Right Arm] O2 Sat by Pulse Oximetry 99 96 Oxygen Delivery Method FIO2% 02/03/24 12:31 02/03/24 12:33 02/03/24 12:33 Temperature Pulse Rate 86 77 Pulse Rate [Left Brachial] Respiratory Rate 35 H 33 H Blood Pressure 118/55 Blood Pressure [Left Arm] Blood Pressure [Right Arm] O2 Sat by Pulse Oximetry 96 98 Oxygen Delivery Method FIO2% 02/03/24 12:45 02/03/24 13:00 02/03/24 13:00 Temperature Pulse Rate 77 79 Pulse Rate [Left Brachial] Respiratory Rate 24 23 Blood Pressure 128/57 Blood Pressure [Left Arm] Blood Pressure [Right Arm] O2 Sat by Pulse Oximetry 98 99 Oxygen Delivery Method FIO2% 02/03/24 13:15 02/03/24 13:30 02/03/24 13:30 Temperature Pulse Rate 71 76 Pulse Rate [Left Brachial] Respiratory Rate 23 28 H Blood Pressure 110/58 Blood Pressure [Left Arm] Blood Pressure [Right Arm] O2 Sat by Pulse Oximetry 100 99 Oxygen Delivery Method FIO2% 02/03/24 13:45 02/03/24 14:00 02/03/24 14:01 Temperature Pulse Rate 73 73 74 Pulse Rate [Left Brachial] Respiratory Rate 44 H 24 30 H Blood Pressure Blood Pressure [Left Arm] Blood Pressure [Right Arm] O2 Sat by Pulse Oximetry 99 97 99 Oxygen Delivery Method FIO2% 02/03/24 14:01 02/03/24 14:01 02/03/24 14:17 Temperature Pulse Rate 114 H Pulse Rate [Left Brachial] Respiratory Rate 29 H Blood Pressure 117/66 117/66 Blood Pressure [Left Arm] Blood Pressure [Right Arm] O2 Sat by Pulse Oximetry Oxygen Delivery Method FIO2% 02/03/24 14:18 02/03/24 14:18 02/03/24 14:29 Temperature Pulse Rate 98 H 82 Pulse Rate [Left Brachial] Respiratory Rate 20 35 H Blood Pressure 140/63 Blood Pressure [Left Arm] Blood Pressure [Right Arm] O2 Sat by Pulse Oximetry 89 L Oxygen Delivery Method FIO2% 02/03/24 14:30 02/03/24 14:30 02/03/24 14:45 Temperature Pulse Rate 79 77 Pulse Rate [Left Brachial] Respiratory Rate 25 H 29 H Blood Pressure 119/56 Blood Pressure [Left Arm] Blood Pressure [Right Arm] O2 Sat by Pulse Oximetry 99 100 Oxygen Delivery Method FIO2% 02/03/24 15:00 02/03/24 15:00 02/03/24 15:00 Temperature Pulse Rate 75 Pulse Rate [Left Brachial] Respiratory Rate 28 H Blood Pressure 100/55 100/55 Blood Pressure [Left Arm] Blood Pressure [Right Arm] O2 Sat by Pulse Oximetry 99 Oxygen Delivery Method FIO2% 02/03/24 15:00 02/03/24 15:15 02/03/24 15:30 Temperature Pulse Rate 74 75 Pulse Rate [Left Brachial] Respiratory Rate 24 27 H Blood Pressure 100/55 Blood Pressure [Left Arm] Blood Pressure [Right Arm] O2 Sat by Pulse Oximetry 99 99 Oxygen Delivery Method FIO2% 02/03/24 15:31 02/03/24 15:31 02/03/24 15:45 Temperature Pulse Rate 75 74 Pulse Rate [Left Brachial] Respiratory Rate 30 H 31 H Blood Pressure 124/62 Blood Pressure [Left Arm] Blood Pressure [Right Arm] O2 Sat by Pulse Oximetry 100 98 Oxygen Delivery Method FIO2% 02/03/24 16:00 02/03/24 16:01 02/03/24 16:01 Temperature Pulse Rate 76 79 Pulse Rate [Left Brachial] Respiratory Rate 36 H 34 H Blood Pressure 109/62 Blood Pressure [Left Arm] Blood Pressure [Right Arm] O2 Sat by Pulse Oximetry Oxygen Delivery Method FIO2% 02/03/24 16:15 02/03/24 18:00 02/03/24 18:00 Temperature 97.7 F Pulse Rate 74 Pulse Rate [Left Brachial] 75 Respiratory Rate 24 20 Blood Pressure Blood Pressure [Left Arm] 147/65 Blood Pressure [Right Arm] O2 Sat by Pulse Oximetry 98 97 Oxygen Delivery Method Room Air Room Air FIO2% 02/03/24 18:51 02/03/24 20:00 02/03/24 19:00 Temperature 97.9 F Pulse Rate Pulse Rate [Left Brachial] 72 Respiratory Rate 18 Blood Pressure Blood Pressure [Left Arm] 130/60 Blood Pressure [Right Arm] O2 Sat by Pulse Oximetry 97 Oxygen Delivery Method Room Air Room Air Room Air FIO2% 02/03/24 21:30 02/03/24 22:15 02/03/24 22:15 Temperature Pulse Rate Pulse Rate [Left Brachial] Respiratory Rate Blood Pressure Blood Pressure [Left Arm] Blood Pressure [Right Arm] O2 Sat by Pulse Oximetry Oxygen Delivery Method Room Air CPAP FIO2% 21 21 02/04/24 00:00 02/04/24 04:00 02/04/24 08:00 Temperature 97.6 F 97.8 F 97.2 F L Pulse Rate Pulse Rate [Left Brachial] 72 70 73 Respiratory Rate 18 18 18 Blood Pressure Blood Pressure [Left Arm] 109/57 121/57 Blood Pressure [Right Arm] 112/56 O2 Sat by Pulse Oximetry 97 99 99 Oxygen Delivery Method Room Air Room Air Room Air FIO2% 02/04/24 07:00 02/04/24 12:00 02/04/24 08:38 Temperature 97.3 F L Pulse Rate Pulse Rate [Left Brachial] 78 Respiratory Rate 19 Blood Pressure Blood Pressure [Left Arm] Blood Pressure [Right Arm] 138/65 O2 Sat by Pulse Oximetry 97 Oxygen Delivery Method Room Air Room Air Room Air FIO2% 02/04/24 16:00 02/04/24 20:00 02/04/24 19:00 Temperature 97.5 F L 97.9 F Pulse Rate Pulse Rate [Left Brachial] 87 83 Respiratory Rate 118 H 20 Blood Pressure Blood Pressure [Left Arm] 121/58 166/65 Blood Pressure [Right Arm] O2 Sat by Pulse Oximetry 98 97 Oxygen Delivery Method Room Air Room Air FIO2% 02/04/24 21:35 02/04/24 21:35 02/05/24 00:00 Temperature 98.0 F Pulse Rate Pulse Rate [Left Brachial] 78 Respiratory Rate 20 Blood Pressure Blood Pressure [Left Arm] 103/56 Blood Pressure [Right Arm] O2 Sat by Pulse Oximetry 97 Oxygen Delivery Method CPAP FIO2% 21 21 02/05/24 04:00 02/05/24 07:00 02/05/24 08:00 Temperature 98.3 F 97.6 F Pulse Rate Pulse Rate [Left Brachial] 68 99 H Respiratory Rate 20 20 Blood Pressure Blood Pressure [Left Arm] 127/59 164/74 Blood Pressure [Right Arm] O2 Sat by Pulse Oximetry 97 96 Oxygen Delivery Method Room Air Room Air FIO2% 02/05/24 13:00 02/05/24 16:30 02/05/24 09:00 Temperature 98.2 F 98.1 F Pulse Rate Pulse Rate [Left Brachial] 68 66 Respiratory Rate 20 18 Blood Pressure Blood Pressure [Left Arm] 147/62 148/67 Blood Pressure [Right Arm] O2 Sat by Pulse Oximetry 98 99 Oxygen Delivery Method Room Air Room Air Room Air FIO2% 02/05/24 20:43 02/05/24 20:43 02/05/24 20:00 Temperature 98.1 F Pulse Rate Pulse Rate [Left Brachial] 67 Respiratory Rate 18 Blood Pressure Blood Pressure [Left Arm] 152/67 Blood Pressure [Right Arm] O2 Sat by Pulse Oximetry 100 Oxygen Delivery Method CPAP Room Air FIO2% 21 21 02/05/24 19:00 02/06/24 00:00 02/06/24 04:00 Temperature 98.6 F 97.7 F Pulse Rate Pulse Rate [Left Brachial] 68 65 Respiratory Rate 18 18 Blood Pressure Blood Pressure [Left Arm] 127/60 124/61 Blood Pressure [Right Arm] O2 Sat by Pulse Oximetry 96 98 Oxygen Delivery Method Room Air Room Air Room Air FIO2% 02/06/24 07:00 02/06/24 08:00 Temperature 98.0 F Pulse Rate Pulse Rate [Left Brachial] 70 Respiratory Rate 18 Blood Pressure Blood Pressure [Left Arm] 137/77 Blood Pressure [Right Arm] O2 Sat by Pulse Oximetry 97 Oxygen Delivery Method Room Air Room Air FIO2% Labs: Laboratory Last Values WBC 7.8 X10^3/uL (3.6-10.0) 02/06/24 04:50 RBC 3.70 X10^6/uL (3.5-5.4) 02/06/24 04:50 Hgb 11.1 g/dL (12.0-16.0) L D 02/06/24 04:50 Hct 33.8 % (36.0-47.0) L 02/06/24 04:50 MCV 91.4 fL (80.0-100.0) 02/06/24 04:50 MCH 30.0 pg (27.0-34.0) 02/06/24 04:50 MCHC 32.8 g/dL (33.0-35.0) L 02/06/24 04:50 RDW 14.4 % (11.6-16.5) 02/06/24 04:50 Plt Count 100 X10^3/uL (150.0-450.0) L 02/06/24 04:50 MPV 7.8 fL (7.4-11.0) 02/06/24 04:50 Neut % (Auto) 45.6 % (42.0-75.0) 02/06/24 04:50 Lymph % (Auto) 42.4 % (21.0-51.0) 02/06/24 04:50 [place] % (Auto) 8.0 % (0.0-13.0) 02/06/24 04:50 Eos % (Auto) 3.3 % (0.9-2.9) H 02/06/24 04:50 Baso % (Auto) 0.7 % (0.2-1.0) 02/06/24 04:50 Neut # (Auto) 3.5 x10^3/uL (2.2-4.8) 02/06/24 04:50 Lymph # (Auto) 3.3 X10^3/uL (1.3-2.9) H 02/06/24 04:50 [place] # (Auto) 0.6 x10^3/uL (0.3-0.8) 02/06/24 04:50 Eos # (Auto) 0.3 x10^3/uL (0.0-0.2) H 02/06/24 04:50 Baso # (Auto) 0.1 X10^3/uL (0.0-0.1) 02/06/24 04:50 Absolute Nucleated RBC 0.0 /100WBC 02/06/24 04:50 D-Dimer 1.47 ug/ml (0.0-0.57) H 02/03/24 12:54 Sodium 145 mmol/L (136-145) 02/06/24 04:50 Corrected Sodium TNP 02/06/24 04:50 Potassium 3.9 mmol/L (3.5-5.1) 02/06/24 04:50 Chloride 113 mmol/L (98-107) H 02/06/24 04:50 Carbon Dioxide 22.2 mmol/L (21-32) 02/06/24 04:50 BUN 21 mg/dL (7-18) H 02/06/24 04:50 Creatinine 1.12 mg/dL (0.55-1.02) H 02/06/24 04:50 Est GFR (MDRD) Af Amer > 60 (>60) 02/06/24 04:50 Est GFR (MDRD) Non-Af 50 (>60) L 02/06/24 04:50 Glucose 68 mg/dL (65-99) 02/06/24 04:50 POC Glucose (mg/dL) 117 mg/dL (65-99) H 02/04/24 07:16 Calcium 8.2 mg/dL (8.5-10.1) L 02/06/24 04:50 Corrected Calcium 9.1 mg/dL (8.5-10.1) 02/06/24 04:50 Magnesium 1.9 mg/dL (2.0-2.9) L 02/06/24 04:50 Iron 86 ug/dL (50-175) 02/04/24 05:20 TIBC 146 ug/dL (250-450) L 02/04/24 05:20 Ferritin 991 ng/mL (8-252) H 02/04/24 05:20 Total Bilirubin 0.60 mg/dL (0.2-1.0) 02/06/24 04:50 AST 20 Units/L (15-37) 02/06/24 04:50 ALT 9 Units/L (12-78) L 02/06/24 04:50 Alkaline Phosphatase 53 Units/L (46-116) 02/06/24 04:50 Creatine Kinase 27 Units/L (26-192) 02/03/24 12:54 Troponin I High Sens 7.0 ng/L (4.0-60.0) 02/03/24 12:54 B-Natriuretic Peptide 28.1 pg/mL (0-79) 02/03/24 12:54 Total Protein 5.8 g/dL (6.4-8.2) L 02/06/24 04:50 Albumin 2.9 g/dL (3.4-5.0) L 02/06/24 04:50 Globulin 2.9 g/dL (2.5-4.5) 02/06/24 04:50 Albumin/Globulin Ratio 1.0 Ratio (1.1-2.1) L 02/06/24 04:50 Triglycerides 215 mg/dL (0-150) H 02/04/24 05:20 Cholesterol 177 mg/dL (0-200) 02/04/24 05:20 LDL Cholesterol, Calc 98 mg/dL (0-100) 02/04/24 05:20 HDL Cholesterol 36 mg/dL (40-60) L 02/04/24 05:20 Cholesterol/HDL Ratio 4.9 (0.0-5.0) 02/04/24 05:20 Amylase 60 Units/L (25-115) 02/03/24 12:54 Lipase 94 Units/L (16-77) H 02/03/24 12:54 Vitamin B12 431 pg/mL (193-986) 02/04/24 05:20 Specimen Type Clean catch urine 02/05/24 17:25 Urine Color Yellow (YELLOW) 02/05/24 17:25 Urine Appearance Clear (CLEAR) 02/05/24 17:25 Urine pH 5.0 (5.0 - 8.0) 02/05/24 17:25 Ur Specific [place] 1.015 (1.000-1.030) 02/05/24 17: Urine Protein Negative (NEGATIVE) 02/05/24 17: Urine Glucose (UA) Negative (NEGATIVE) 02/05/24 17: Urine Ketones Negative (NEGATIVE) 02/05/24 17: Urine Blood 1+ (NEGATIVE) 02/05/24 17: Urine Nitrite Negative (NEGATIVE) 02/05/24 17: Urine Bilirubin Negative (NEGATIVE) 02/05/24 17: Urine Urobilinogen Normal (NORMAL) 02/05/24 17:25 Ur Leukocyte Esterase 1+ (NEGATIVE) 02/05/24 17: Urine RBC 3-5 /HPF (0-3) A 02/05/24 17: Urine WBC 10-20 /HPF (0-5) A 02/05/24 17: Ur Squamous Epith Cells Moderate /HPF (NEGATIVE) 02/05/24 17: Urine Bacteria 1+ /HPF (NEGATIVE) 02/05/24: Ur Culture Indicated? Yes/culture set up 02/05/24 17: Blood Type A POSITIVE 02/05/24 13:05 Antibody Screen Negative 02/05/24 13:05 Crossmatch See Detail 02/05/24 13:05 Reason For Visit: SOB, RENAL INSUFFICENCY, DEHYDRATION,UTI, Discharge Date Discharge Date: 02/06/24 Discharge Diagnosis All Active Problems (Updated 02/05/24 @ 09:40 by Beatriz Schwartz) Dyspnea (Acute) Pulmonary hypertension (Acute) History of non-Hodgkin's lymphoma (Chronic) History of mouth cancer (Chronic) History of rectal cancer (Chronic) Anxiety (Chronic) Depression (Chronic) History of anemia (Chronic) Diabetes mellitus, type 2 (Chronic) GERD (gastroesophageal reflux disease) (Chronic) Hypertension (Chronic) History of coronary artery disease (Chronic) History of angina (Chronic) Hyperlipidemia (Chronic) History of asthma (Chronic) Arthritis (Chronic) Allergy to ant bite (Acute) Fall (Acute) Knee pain, left (Acute) Anemia (Acute) Acute renal insufficiency (Acute) Dehydration (Acute) UTI (urinary tract infection) (Acute) Plan of Treatment: Continue with present treatment and follow up plan. Pt is to keep follow up appointment as instructed and take medications as ordered. Discharge Medications Discharge Medications: codeine Allergy (Unknown, Verified 05/24/22 11:38) fire ant Allergy (Unknown, Verified 02/06/23 16:13) shrimp Allergy (Unknown, Verified 05/24/22 11:38) CONTINUE taking the following medications cetirizine 10 mg tablet 10 mg PO DAILY 02/03/24 [History] duloxetine 60 mg capsule,delayed release 60 mg PO QDAY 02/03/24 [History] folic acid 1 mg tablet 1 mg PO DAILY 02/03/24 [History] furosemide 20 mg tablet 20 mg PO DAILY 02/03/24 [History] gabapentin 300 mg capsule 300 mg PO QDAY 02/03/24 [History] oxybutynin chloride 5 mg tablet 5 mg PO BID 02/03/24 [History] potassium chloride 10 mEq tablet,extended release 10 meq PO QDAY 02/03/24 [History] sertraline 25 mg tablet 25 mg PO QDAY 02/03/24 [History] temazepam 15 mg capsule 30 mg PO HS 02/03/24 [History] temazepam 30 mg capsule 30 mg PO QPM PRN 02/03/24 [History] New Prescriptions cephalexin 500 mg capsule 500 mg PO BID 10 days #20 caps 02/06/24 [Rx] Discharge Plan Discharge Plan Hospital Course: Patient is a 78 year old female admitted for dyspnea, anemia, acute cystitis, and dehyration. Pt was treated in the [facility], dyspnea resolved. Pt on room air. V/Q scan negative. Patient was transfused 2 units packed red blood cells, hemoglobin responded appropriately. Renal function improved back to normal limits with IVF. Electrolytes repleted per protocol. Pt received IV rocephin. Urine culture contamination, repeat pending, will follow up final. Otherwise, patient stable for discharge. Rx keflex. Instructed to follow up with pcp in 1 week. Patient Disposition: 01 HOME, SELF-CARE Condition: Stable Health Concerns: Post Hospitalization: new medications and changes needed to prevent readmission or further decline. Pt educated and given instructions on all concerns. Care Plan Goals: Problem: Pain/Alteration in Comfort Goal: Improve/ Resolve Pain; Achieve Pain Tolerance Instructions: Take pain medications as prescribed. Contact your primary care provider if your pain is unrelieved or worsens. Follow up with primary care provider as directed. Plan of Treatment: Continue with present treatment and follow up plan. Pt is to keep follow up appointment as instructed and take medications as ordered. Prescriptions: New cephalexin 500 mg Capsule 500 mg PO BID 10 Days Qty: 20 0RF No Action atorvastatin 20 mg tablet 1 tab PO QDAY enalapril maleate 20 mg tablet 1 tab PO QDAY glipizide 10 mg tablet 1 tab PO BID levothyroxine 25 mcg tablet 1 tab PO QDAY omeprazole 20 mg capsule,delayed release(DR/EC) 1 cap PO BID ergocalciferol (vitamin D2) [Vitamin D2] 1,250 mcg (50,000 unit) capsule 1 cap PO WEEKLY Rx Instructions: takes weekly on Saturday potassium chloride 10 mEq tablet extended release 10 meq PO QDAY temazepam 30 mg capsule 30 mg PO QPM PRN gabapentin 300 mg capsule 300 mg PO QDAY folic acid 1 mg Tablet 1 mg PO DAILY furosemide 20 mg Tablet 20 mg PO DAILY oxybutynin chloride 5 mg tablet 5 mg PO BID duloxetine 60 mg capsule,delayed release(DR/EC) 60 mg PO QDAY cetirizine 10 mg Tablet 10 mg PO DAILY temazepam 15 mg capsule 30 mg PO HS sertraline 25 mg tablet 25 mg PO QDAY Orders to Discharge Patient Discharge Orders: Discharge (Routine); Ordered 02/06/24 Ordered By: aJk Murguia Follow ups/Referrals Follow ups/Referrals: Mario Butt [Primary Care Provider] - 02/13/24 1:15 pm JACOBY QUIROZ [REFERRING] - 3 days Instructions Instructions: Urinary Tract Infection, Adult, [id number], Rehydration, Older Adult, Dehydration, Older Adult, [id number] Stand Alone Forms: Excuse From Work or School, Post Hospital Follow Up Care
[2024-02-06] MEDS: MAG-OX TAB ONE (10:16)
[2024-02-09] MEDS ORDERED: VITAMIN D (1.25MG) PO SCH (09:00)
== END 2024-02-06 11:44 | disposition home or self-care (01) ==
LOC: SUPCPDRO → ER 11:28 → MED/SURG 11:28
PROVIDERS: ADMIT Internal Medicine; ATTEND Internal Medicine